=== PATIENT | female | born 1945 | race Caucasian/White ===

== ENCOUNTER 2020-02-06 18:16 | Emergency (ER) | payer MEDICARE, OTHER ==
[~2020-02-06] VITALS: Ht 170.2 cm; Wt 82.5 kg
[2020-02-06] MEDS ORDERED: LEVOTHYROXINE125 MCG PO (18:40)
[2020-02-06] MEDS ORDERED: SERTRALINE HCL50 MG PO (18:40)
[2020-02-06] MEDS ORDERED: LIOTHYRONINE SO5 MCG PO (18:41)
--- NOTE | 2020-02-07 13:22 | EKG ---
[facility] [address] [place], [place] [address] Signed Normal sinus rhythm Left axis deviation Inferior infarct , age undetermined Abnormal ECG No previous ECGs available Confirmed by SPEEDY NG DO ([id number]) on 02/07/2020 1:22:28 PM Electronically Signed By: SPEEDY NG DO 02/07/20 1322 PATIENT NAME: KAYKAY CANDELARIA Electrocardiogram DATE OF : 49 PHYSICIAN: SPEEDY NG DO REPORT #: [id number] REPORT IS CONFIDENTIAL AND NOT TO BE RELEASED WITHOUT AUTHORIZATION
== END 2020-02-07 02:47 | disposition home or self-care (01) ==
LOC: ED 18:16
DX: T42.6X1A Poisoning by other antiepileptic and sedative-hypnotic drugs, accidental (unintentional), initial encounter (principal); Z79.899 Other long term (current) drug therapy
CPT/HCPCS: 51701; 80053; 80176; 81001; 84436; 84443; 84479; 84480; 85025; 93005; 93010; 99284-25; G0480; J7030

== ENCOUNTER 2020-12-17 21:11 | Emergency (ER) | payer MEDICARE, OTHER ==
[~2020-12-17] VITALS: Ht 170.2 cm; Wt 81.3 kg
[~2020-12-17 21:11] MED LIST: LEVOTHYROXINE125 MCG PO; LIOTHYRONINE SO5 MCG PO; SERTRALINE HCL50 MG PO
--- OUTSIDE RECORDS SUMMARY | 2020-12-17 21:14 | XMS ---
PreManage Notification: KAYKAY CANDELARIA [facility] Sales Events No recent Security Events currently on file CRITERIA MET - [facility] CARE PROVIDERS There are no care providers on record at this time. Heather has no Care Guidelines for this patient. Zainab VISIT COUNT (12 MO.) 2 FLOYD [facility] TOTAL 2 NOTE: Visits indicate total known visits. ED/C VISIT TRACKING (12 MO.) 12/17/2020 21:12 [facility] [place] TYPE: Emergency COMPLAINT: - STROKE SYMPTOMS 02/06/2020 18:17 [facility] [place] TYPE: Emergency COMPLAINT: - SOMULENT DIAGNOSES: - Poisoning by other antiepileptic and sedative-hypnotic drugs, accidental (unintentional), initial encounter - Other intermediate teacher (current) drug therapy - Somnolence INPATIENT VISIT TRACKING (12 MO.) No inpatient visits to display in this time frame [email or web address]
[2020-12-17] MEDS ORDERED: LIPITOR10 MG PO (21:24)
[2020-12-17] MEDS ORDERED: LISINOPRIL10 MG PO (21:24)
[2020-12-17] MEDS ORDERED: ATORVASTATIN CA20 MG PO (21:24)
[2020-12-17] MEDS ORDERED: EUTHYROX112 MCG PO (21:24)
[2020-12-17] MEDS ORDERED: METFORMIN HCL500 M1 PO (21:24)
[2020-12-17] MEDS ORDERED: ESTRADIOL42.5 GM VG (21:25)
[2020-12-17] MEDS ORDERED: HYDROCHLOROTH12.5 MG PO (21:25)
--- NOTE | 2020-12-18 12:41 | EKG ---
[facility] [address] [facility] [place] [address] Signed Normal sinus rhythm Cannot rule out Anterior infarct , age undetermined Abnormal ECG When compared with ECG of 06-FEB-2020 18:49, Minimal criteria for Anterior infarct are now present Criteria for Inferior infarct are no longer present T wave inversion no longer evident in Inferior leads Confirmed by SPEEDY NG DO ([id number]) on 12/18/2020 12:41:00 PM Electronically Signed By: SPEEDY NG DO 12/18/20 1241 PATIENT NAME: KAYKAY CANDELARIA Electrocardiogram DATE OF : 49 PHYSICIAN: SPEEDY NG DO REPORT #: [id number] REPORT IS CONFIDENTIAL AND NOT TO BE RELEASED WITHOUT AUTHORIZATION
== END 2020-12-17 23:31 | disposition home or self-care (01) ==
LOC: ED 21:11
DX: R56.9 Unspecified convulsions (principal); Z79.899 Other long term (current) drug therapy; Z79.84 Long term (current) use of oral hypoglycemic drugs
CPT/HCPCS: 70450; 71045; 80053; 81001; 84484; 85025; 93005; 93010; 99285-25

== ENCOUNTER 2021-03-15 00:01 | Observation (INO) | payer MEDICARE, OTHER ==
[~2021-03-15] VITALS: Ht 170.2 cm; Wt 81.0 kg
[~2021-03-15 00:01] MED LIST changes: +ATORVASTATIN CA20 MG PO; +ESTRADIOL42.5 GM VG; +EUTHYROX112 MCG PO; +HYDROCHLOROTH12.5 MG PO; +LIPITOR10 MG PO; +LISINOPRIL10 MG PO; +METFORMIN HCL500 M1 PO
[2021-03-15] MEDS ORDERED: AMBIEN CR12.5 MG PO (01:56)
--- NOTE | 2021-03-15 03:31 | NUR ---
PT ADMITTED TO CCU ROOM 129 FOR NEW ONSET AFIB WITH RVR AND SEIZURE. PT HAD SEIZURE THIS EVENING, WAS BROUGHT IN BY EMS AND ALSO FOUND TO BE IN AFIB WITH RATE 120'S TO 140'S. ARRIVES VERY DROWSY BUT ARROUSES TO VOICE, AND ANSWERS QUESTIONS APPROPRIATLEY. SEIZURE PADS IN PLACE. PT DENIES PAIN OR DISCOMFORT, STATES SHE WILL CALL IF SHE NEEDS TO GET UP, CALL LIGHT IN HAND. PT ARRIVES ON 5L/NC WITH SPO2 98%, TITRATED DOWN TO 3L/NC. CURRENT HR 120'S, WILL START CARDIZEM DRIP. LUNGS SOUNDS CLEAR, PT DENIES SOB.
--- NOTE | 2021-03-15 05:19 | NUR ---
PT CONT TO SLEEP, HR 70'S, CARDIZEM DRIP RUNNING AT 5MG/HR.
--- NOTE | 2021-03-15 06:00 | NUR ---
HR HAS REMAINED IN THE 70'S, CARDIZEM DRIP TURNED TO 2MG/HR.
--- NOTE | 2021-03-15 06:55 | NUR ---
CARDIZEM DRIP TURNED OFF, HR 70'S.
--- NOTE | 2021-03-15 08:10 | NUR ---
PATIENT ASLEEP BUT EASILY AROUSEABLE TO VOICE UPON INITIAL ASSESSMENT. PATIENT IS ORIENTED TO SELF, SITUATION, TIME AND EVENT. PATIENT KNOWS SHE HAD A SEIZURE AND STATES THE IRREGULAR HR IS NOT NEW FOR HER. PATIENT STATES HER LAST SEIZURE WAS DECEMBER OF THIS YEAR AND SHE FOLLOWED UP WITH JULIANN. PT TAKEN OFF OXYGEN AND SP02 IS 91%. LUNG SOUNDS ARE CLEAR. PT GIVEN WATER AND NO TROUBLE SWALLOWING. AM MEDS TO BE GIVEN.
--- NOTE | 2021-03-15 09:54 | NUR ---
IN ROOM TO GIVE PT MEDS VIA EMAR. PT UP TO BATHROOM ONE PERSON ASSIST. PT BACK TO BED. PTS IN ROOM. PT DENIES DIZZYNESS UPON STANDING. HR 110-120S WITH AMBULATION, A FIB.
[2021-03-15] MEDS ORDERED: EUTHYROX100 MCG PO (10:16)
--- NOTE | 2021-03-15 11:54 | NUR ---
REPORT RECEIVED FROM CANDACE HYATT, AWAITING PTS ARRIVAL TO MED/SURG
--- NOTE | 2021-03-15 12:02 | NUR ---
REPORT GIVEN TO CANDACE RILEY WHO WILL BE RESUMING CARE FOR PATIENT. PATIENT TO BE PLACED ON TELE. HR IN THE 60-70s NOW AFTER RECENT PO MEDS WERE GIVEN. PT WILL TRANSFER OVER IN THE BED.
--- NOTE | 2021-03-15 12:24 | NUR ---
PT ARRIVED TO MED/SURG. PT ALERT AND OREINTED TO ALL. PT DENIES PAIN AND NAUSEA. BLOOD PRESSURE NOTED TO BE SLIGHTLY LOW. PT DENIES DIZZINESS OR FEELINGS OF LIGHTHEADEDNESS. PT SITS ON EDGE OF BED, BLOOD PRESSURE REEVALUATED BEFORE STANDING AND FOUND TO BED 91/58 WITH A MAP OF 66. PT CONTINUES TO DENY ANY DIZZINESS OR LIGHTHEADEDNESS. LUNG SOUNDS CLEAR. NO COUGH NOTED. PT ON ROOM AIR AT THIS TIME WITH 91% OXGYENATION. HEART TONES IRREGULAR, AFIB ON MONITOR WITH HEART RATE 60-80'S. PT DEMONSTRATES USE OF I.S. REACHING 750 X3. PT DENIES ADDITIONAL REQUESTS OR COMPLAINTS. PT REMAINS UP TO CHAIR. CALL LIGHT WIHTIN REACH.
--- NOTE | 2021-03-15 14:30 | NUR ---
CCU RN CALLED AND STATES PTS TELE HAS SHOWN HEART RATE IN THT 60'S WITH A FEW PAUSES AND ONE BRIEF PERIOD IN THE 30-40'S. BLOOD PRESSURE ALSO NOTED TO BE CONSISTANTLY ON THE LOWER SIDE. PT CONTINUES TO DENY DIZZINESS AND/OR LIGHT HEADEDNESS OR FEELINGS OF PALPITATIONS. DR. NG UPDATED AND CONSULTED REGARDING AFTERNOON DILTIAZEM DOSE. DR. NG STATES OK TO GIVE DOES. PT REMAINS UP TO CHAIR. DENIES PAIN AND NAUSEA. NO ADDITIONAL REQUESTS OR COMPLAINTS. CALL LIGHT WITHIN REACH. PTS AT BEDSIDE.
--- NOTE | 2021-03-15 16:00 | NUR ---
THIS RN TO ROOM TO CHECK ON PT. PT RESTING IN CHAIR WITH EYES CLOSED. RESPIRATIONS EVEN AND UNALBORED. PT ALLOWED TO REST. CALL LIGHT WITHIN REACH.
--- NOTE | 2021-03-15 16:28 | NUR ---
PT TRANSFERED FROM CCU THIS SHIFT, HERE FOR AFIB RVR AND POSSIBLE SEIZURE. PT UP WITH STAND BY ASSIST TO CHAIR FOR LUNCH AND MOST OF SHIFT. PT TOELRATING 60G CARB DIET WITH GOOD APPITITE THIS SHIFT. BLOOD SUGAR CHECKS WITH MEALS, NO SLIDING SCALE INSULIN NEEDED SO FAR THIS SHIFT. PT REMAINS ON TELEMETRY CARDIAC MONITORING WITH HEART RATE 60-80'S. BRIEF EPISODES OF SLOWER HEART RATE AND PAUSES THIS SHIFT, MD AWARE. PT WAS REQURING OXGYEN WITH SLEEP LAST NIGHT, ON ROOM AIR SO FAR THIS SHIFT. NO SEZURE ACTIVITY NOTED SO FAR. I.S. PROVIDED, USE ENSURED. PT VOIDING QUANTITY SUFFICIENT. PT USES CALL LIGHT AND MAKES NEEDS KNOWN.
--- NOTE | 2021-03-15 16:59 | NUR ---
Spoke with Deisy, states she lives in a 1 story home with 1 step, with her spouse. 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 Does not feel Afib is new, as she has felt before. States she has not been active this summer due to the heat. She normally is active in yard. Also states she does not sleep well and is tired all the time. PCP is Katlyn Su in [place]. Pt plans on dc to home when medically stable and spouse will assist.
--- NOTE | 2021-03-15 17:08 | NUR ---
THIS RN TO ROOM TO CHECK ON PT. PT REMAINS UP TO CHAIR. YUE, NEW BEVERAGE DISTILLER, ASSISTED WITH TAKING AND EVALUATING BLOOD SUGAR. NO INSULIN NEEDED. PT DENIES PAIN AND NAUSEA. REPORTS SHE IS FEELING GOOD AND HOPING TO GO HOME SOON. PT DENIES DIZZINESS OR LIGHTHEADEDNESS. DINNER DELIVERED. PT DENIES ADDITIONAL REQUESTS OR COMPLAINTS. CALL LIGHT WITHIN REACH. PHARMACIST TO BEDSIDE TO REVIEW MEDICATIONS WITH PT.
--- NOTE | 2021-03-15 17:28 | NUR ---
THIS RN TO ROOM WITH DR. LEAL FOR WOUND EVALUATION. GAUZE REMOVED. DR. LEAL STATES WOUND IS WNL. VERBAL ORDER FOR ABDOMINAL BINDER GIVEN. ORDER ENTERED. STATES NOW OK TO REMOVE SUBCLAVAIN LINE. GAUZE REAPPLIED TO CAUDIAL MIDLINE INCISION. 2X2 GAUZE OVER FRIDA SITE WHICH IS NO LONGER LEAKING VERY MUCH FLUID. PT FINISHING DINNER. NO ADDITIONAL REQUESTS OR COMPLAINTS. CALL LIGHT WITHIN REACH. PT DENIES PAIN AND NAUSEA.
[2021-03-15] MEDS ORDERED: IRON325 M1 PO (17:39)
[2021-03-15] MEDS ORDERED: PRILOSEC OTC20 MG PO (17:39)
[2021-03-15] MEDS ORDERED: VITAMIN C250 M1 PO (17:39)
[2021-03-15] MEDS ORDERED: MULTI-VITAMIN1 EAC1 PO (17:40)
[2021-03-15] MEDS ORDERED: COLON HERBAL C1 EACH PO (17:40)
[2021-03-15] MEDS ORDERED: METHOTREXATE2.5 MG PO (17:41)
[2021-03-15] MEDS ORDERED: FOLIC ACID1 MG PO (17:42)
--- NOTE | 2021-03-15 17:42 | NUR ---
MED REC COMPLETE
--- NOTE | 2021-03-15 18:15 | NUR ---
THIS RN TO ROOM TO CHECK ON PT. PT RESTING IN CHAIR WITH EYES CLOSED. RESPIRATIONS EVEN AND UNALBORED. PT ALLOWED TO REST. HEART RATE 60-70'S AT THIS TIME WITH ONGOING AFIB RYTHEM. CALL LIGHT WITHIN REACH.
--- NOTE | 2021-03-15 19:30 | NUR ---
REPORT GIVEN TO CANDACE RAMOS, WHO IS ASSUMING CARE OF PT.
--- NOTE | 2021-03-15 20:00 | NUR ---
RESTING, EYES CLOSED, ON ROOM AIR, NO DITRESS, TELE IN PLACE, SEIZURE PADS ON RAILS. BED ALARM ON
--- NOTE | 2021-03-15 20:30 | NUR ---
IN TO SBA PT TO THE BATHROOM, PT UP TO VOID, x1 MISS, PT BRUSHING TEETH, THEN TO BED AND READING A BOOK, DECLINED WATER REFILL AT THIS TIME, WILL BRING MORE LATER FOR PT, NO FURTHER NEEDS THIS TIMW
--- NOTE | 2021-03-15 22:27 | NUR ---
Awakes easily, on room air, denies need for O2 at HS. lungs clear, alert and oriented, denies sob with exertion, CP or pre seizure aura. helps withturning and repositioning. tele#[address], irregular rate and rhythm s fib. tolerating fluids well, non/v,
--- NOTE | 2021-03-16 01:00 | NUR ---
RESTING, ON ROOM AIR, SEIZURE, FALL AND ASPIRATION PRECAUTIONS IN PLACE. BED ALARM ON, TOLERATING FLUDIS WELL, NO EMESIS, CALL LIGHT AND FLUIDS AT BEDSIDE, TELE#9 IN PLCE, AFIB RHYTHM
--- NOTE | 2021-03-16 03:29 | NUR ---
awakes easily, no c/o CP or sob, no seizure aura, turns and repositions self in bed, sl patent, took meds w/o ptoblems, tele#[address] afib rhythm
--- NOTE | 2021-03-16 04:53 | NUR ---
Pt slept, awakes easily, no c/o CP or SOB or pre seizure aura, tele#[address] afib. seizure precautions pads in place, fall and aspiration precautions. tolerating liquids well, no emesis, no c/o any discomofrt, med ed given on cardizem and anticoagulation, unknown degree of information retained as she just closed her eyes, IS at bedside. tolerating liquids and diet well.
--- NOTE | 2021-03-16 07:35 | NUR ---
Shift report received from CANDACE Avila. Pt resting safely w/ call light in reach. pt denies any needs at this time.
--- NOTE | 2021-03-16 08:17 | NUR ---
PT WAS IN BED. PT REFUSED TO GET UP TO THE RECLINER. THIS SECURITIES VAULT SUPERVISOR GAVE PT A WARM WASHCLOTH FOR THEIR FACE. WHITEBOARD WAS UPDATED. CALL LIGHT IS WITHIN REACH. NO FURTHER NEEDS AT THIS TIME.
--- NOTE | 2021-03-16 08:51 | NUR ---
PT SITTIGN UP IN BED EATING BREAKFAST, PT A+O x3 W/ SEIZURE PADS IN PLACE, PT DENIES CP OR SOB. MORNING ASSESMENT COMPLETE AND SCHEDULED MEDS GIVEN PER PROVIDER ORDERS. PT DENIES ANY NEEDS AT THIS TIME, CALL LIGHT IN REACH. VSS ON RA
--- NOTE | 2021-03-16 10:20 | NUR ---
Pt sitting up in bed safely w/ call light in reach, at bedside. Pt given additional dose of Metoprolol per provider order, BP w/ in range, HR tachy ranging 110's-130's, pt denies CP or SOB, tele showing Afib rythtm.
--- NOTE | 2021-03-16 12:07 | NUR ---
Pt sitting up in bed eating lunch, CBG in range, no sliding scale insulin needed at this time. Call light w/ in reach pt denies any CP, SOB, or needs at this time.
[2021-03-16] MEDS ORDERED: METOPROLOL TART25 MG PO (14:13)
[2021-03-16] MEDS ORDERED: ASPIRIN325 MG PO (14:14)
[2021-03-16] MEDS ORDERED: LEVETIRACETAM500 MG PO (14:14)
[2021-03-16] MEDS ORDERED: DILTIAZEM 24HR180 M1 PO (14:14)
--- NOTE | 2021-03-16 14:37 | NUR ---
PT SITTING UP IN BED WATCHING TV, CALL LIGHT IN REACH AND AT BEDSIDE. ADDITIONAL DOSE OF CARDIZEM GIVEN PER PROVIDER ORDER, VSS ON RA. PHARMACIST AUTUMN IN ROOM DISCUSSING DISCHARGE MEDICATIONS W/ PT.
--- NOTE | 2021-03-16 14:53 | EKG ---
[facility] [address] [facility] [place], [place] [address] Signed Atrial fibrillation with rapid ventricular response Nonspecific ST and T wave abnormality Abnormal ECG When compared with ECG of 17-DEC-2020 21:16, Atrial fibrillation has replaced Sinus rhythm Vent. rate has increased BY 61 BPM Confirmed by SPEEDY NG DO ([id number]) on 03/16/2021 2:53:18 PM Electronically Signed By: SPEEDY NG DO 03/16/21 1453 PATIENT NAME: KAYKAY CANDELARIA Electrocardiogram DATE OF : 49 PHYSICIAN: SPEEDY NG DO REPORT #: [id number] REPORT IS CONFIDENTIAL AND NOT TO BE RELEASED WITHOUT AUTHORIZATION
== END 2021-03-16 15:03 | disposition home or self-care (01) ==
LOC: ED 00:01 → CCU 00:02 → MS 00:02 → CCU 00:02 → MS 12:30
PROVIDERS: ADMIT Student in an Organized Health Care Education/Training Program; ATTEND Student in an Organized Health Care Education/Training Program
DX: I48.91 Unspecified atrial fibrillation (principal); G40.409 Other generalized epilepsy and epileptic syndromes, not intractable, without status epilepticus; E11.9 Type 2 diabetes mellitus without complications; E03.9 Hypothyroidism, unspecified; I10 Essential (primary) hypertension; E78.5 Hyperlipidemia, unspecified; Z20.822 Contact with and (suspected) exposure to COVID-19; Z96.653 Presence of artificial knee joint, bilateral; Z96.649 Presence of unspecified artificial hip joint; Z79.84 Long term (current) use of oral hypoglycemic drugs
CPT/HCPCS: 70450; 71045; 80053; 81001; 83735; 84443; 84484; 85025; 93005; 93010; 94760; 96374; 96376; 99285-25; C9803; G0480; J3475; J7030; U0003

== ENCOUNTER 2021-07-17 20:57 | Emergency (ER) | payer MEDICARE, OTHER ==
[~2021-07-17] VITALS: Ht 165.1 cm; Wt 78.5 kg
[~2021-07-17 20:57] MED LIST changes: +AMBIEN CR12.5 MG PO; +ASPIRIN325 MG PO; +COLON HERBAL C1 EACH PO; +DILTIAZEM 24HR180 M1 PO; +EUTHYROX100 MCG PO; +FOLIC ACID1 MG PO; +IRON325 M1 PO; +LEVETIRACETAM500 MG PO; +METHOTREXATE2.5 MG PO; +METOPROLOL TART25 MG PO; +MULTI-VITAMIN1 EAC1 PO; +PRILOSEC OTC20 MG PO; +VITAMIN C250 M1 PO
[2021-07-17] MEDS ORDERED: METHOTREXATE2.5 MG PO (21:24)
[2021-07-17] MEDS ORDERED: VENLAFAXINE HCL75 M2 PO (21:24)
[2021-07-17] MEDS ORDERED: DILT-XR240 MG PO (21:25)
--- OUTSIDE RECORDS SUMMARY | 2021-07-17 22:04 | XMS ---
PreManage Notification: KAYKAY CANDELARIA [facility] Events No recent Security Events currently on file CRITERIA MET - [employer] CARE PROVIDERS KEVON MAC Nurse Practitioner: 12/18/2020-Current PHONE: Unknown Heather has no Care Guidelines for this patient. EOzzy VISIT COUNT (12 MO.) 3 FLOYD Brunson TOTAL 3 NOTE: Visits indicate total known visits. ED/UCC VISIT TRACKING (12 MO.) 07/17/2021 20:58 [facility] [place] TYPE: Emergency COMPLAINT: - SEIZURE 03/15/2021 00:01 [facility] [place] TYPE: Emergency COMPLAINT: - POSSIBLE SIEZURE 12/17/2020 21:12 [facility] [place] TYPE: Emergency COMPLAINT: - STROKE SYMPTOMS DIAGNOSES: - Unspecified convulsions - Other petroleum terminal plant operator (current) drug therapy - watermelon inspector (current) use of oral hypoglycemic drugs INPATIENT VISIT TRACKING (12 MO.) 03/15/2021 00:02 [facility] [place] TYPE: Observation COMPLAINT: - A+FIB RUR DIAGNOSES: - Type 2 diabetes mellitus without complications - Hyperlipidemia, unspecified - Other generalized epilepsy and epileptic syndromes, not intractable, without status epilepticus - FCI (current) use of oral hypoglycemic drugs - Hypothyroidism, unspecified - Unspecified atrial fibrillation - Presence of artificial knee joint, bilateral - Presence of unspecified artificial hip joint - Essential (primary) hypertension [email or web address]
== END 2021-07-17 23:18 | disposition home or self-care (01) ==
LOC: ED 20:57
DX: R56.9 Unspecified convulsions (principal); I10 Essential (primary) hypertension; E03.9 Hypothyroidism, unspecified; M06.9 Rheumatoid arthritis, unspecified; Z79.899 Other long term (current) drug therapy
CPT/HCPCS: 80053; 82140; 85025; 96374; 99285-25; J2060

== ENCOUNTER 2024-08-24 05:28 | Inpatient (IN) | payer MEDICARE, OTHER ==
[~2024-08-24] VITALS: Ht 167.6 cm; Wt 89.0 kg
[~2024-08-24 05:28] MED LIST changes: +DILT-XR240 MG PO; +VENLAFAXINE HCL75 M2 PO
[2024-08-24] MEDS ORDERED: ZOLPIDEM TART12.5 MG PO (05:38)
[2024-08-24] MEDS ORDERED: LEVOTHYROXINE125 MCG PO (05:38)
[2024-08-24] MEDS ORDERED: methylPREDNISolone SOD SUCC 125 MG/2 ML VIAL IV ONE (05:45)
[2024-08-24] MEDS ORDERED: ALBUTEROL/IPRATROPIUM 3 ML NEB INH ONE (05:45)
[2024-08-24 05:46] LABS: BASOPHILS 0.5 % (0-2); EOSINOPHILS 1.6 % (0-6); HEMATOCRIT 40.1 % (35.0-50.0); HEMOGLOBIN 13.1 g/dL (12.0-18.0); LYMPHOCYTES 16.7 % (24-44); MCH 29.9 (27-36); MCHC 32.8 g/dl (30-36); MCV 91.1 fl (81-99); MONOCYTES 12.3 % (0-12); NEUTROPHILS 68.9 % (39-80); PLATELET COUNT 216 K/uL (140-440); RDW 19.7 (10.5-15.0)
[2024-08-24 06:01] LABS: ALBUMIN 3.5 g/dL (3.4-5.0); ANION GAP 14.7 (7-21); BILIRUBIN, TOTAL 0.9 mg/dL (0.2-1.0); BUN/CREATININE RATIO 22.53 (6.0-28.6); CALCIUM 8.5 mg/dL (8.5-10.1); CREATININE, SERUM 0.71 mg/dL (0.55-1.02); POTASSIUM 3.7 mmol/L (3.5-5.1)
[2024-08-24 06:33] LABS: INFLUENZA B NAA NEGATIVE (NEGATIVE); RESPIRATORY SYNCYTIAL VIR NAA NEGATIVE (NEGATIVE)
[2024-08-24] MEDS ORDERED: CEFTRIAXONE/SODIUM CHLORIDE 2 GM/100 ML PIGGYBACK IV ONE (07:15)
[2024-08-24] MEDS ORDERED: AZITHROMYCIN/DEXTROSE 500 MG/250 ML PIGGYBACK IV ONE (07:15)
[2024-08-24] MEDS ORDERED: ALBUTEROL SULFATE 0.083% 3 ML VIAL INH PRN (07:30)
[2024-08-24] MEDS ORDERED: ondansetron HCL 4 MG/2 ML VIAL IV PRN ×2 (07:30→09:15)
[2024-08-24] MEDS ORDERED: ACETAMINOPHEN 325 MG TAB PO PRN ×2 (07:30→09:15)
[2024-08-24] MEDS ORDERED: ALBUTEROL/IPRATROPIUM 3 ML NEB INH SCH ×2 (08:00→14:00)
[2024-08-24 08:07] VITALS: BP 146/87
--- NOTE | 2024-08-24 08:57 | NUR ---
PT TO FLOOR WITH CANDACE MALIN AND THIS RN AND . PT ABLE TO TRANSFER SELF FROM STRETCHER TO BED ON OWN. DOES NOT USE ASSIST DEVICE AT HOME. 2LNC NOT CHRONIC HOWEVER DOES HAVE A CONDENSOR AT HOME. LUNGS SOUNDS COARSE AND WHEEZY THROUGHOUT.
[2024-08-24] MEDS ORDERED: LACTATED RINGER'S 1,000 ML IV SCH (09:00)
[2024-08-24] MEDS ORDERED: FOLIC ACID 1 MG TAB PO SCH (09:08)
[2024-08-24] MEDS ORDERED: LEVOTHYROXINE SODIUM 125 MCG TAB PO SCH (09:09)
[2024-08-24] MEDS ORDERED: dilTIAZem HCL 120 MG CAPCR PO SCH (09:11)
[2024-08-24] MEDS ORDERED: AZITHROMYCIN 500 MG in DEXTROSE 5% 250 ML IV SCH (09:15)
[2024-08-24] MEDS ORDERED: ZOLPIDEM TARTRATE 5 MG TAB PO PRN ×2 (09:15→11:45)
--- NOTE | 2024-08-24 09:30 | NUR ---
Spoke with Deisy. Spouse is in the room. They live in a home with 1 step. Pt states she is active and does not use any DME. She works at a school. Pt c/o of not feeling well for several days and remains very tired today. Pt has 02 on and states spouse has 02 concentrator at home with a portable concentrator from [facility]. They would like to share a concentrator if possible. Updated we would need to speak with [facility]. Will fu when closer to dc if pt requires 02. They deny any financial issues.Pt plans on return to home on dc with spouse
--- NOTE | 2024-08-24 10:30 | NUR ---
AB COMPLETE. DISCONNECTED. PT DENIES NEEDS ATT.
[2024-08-24] MEDS ORDERED: BUPROPION XL150 MG PO (10:51)
--- NOTE | 2024-08-24 10:57 | NUR ---
PT NOT AVAILABLE FOR VISIT. PROVIDED PRAYER.
--- NOTE | 2024-08-24 11:15 | NUR ---
PT BOLUS COMPLETE. DISCONNECTED FROM TUBING AND SL. PT TOLERATED WELL. CALL LIGHT IN REACH.
--- NOTE | 2024-08-24 11:34 | NUR ---
MED REC COMPLETE
[2024-08-24] MEDS ORDERED: PRILOSEC OTC20 MG PO (11:36)
[2024-08-24] MEDS ORDERED: MELOXICAM15 MG PO (11:36)
[2024-08-24] MEDS ORDERED: PHARMACY RENAL DOSE ADJUSTMENT 1 DOSE MISC PO SCH (12:00)
[2024-08-24] MEDS ORDERED: TAMSULOSIN HCL 0.4 MG CAP PO SCH (13:00)
--- NOTE | 2024-08-24 13:01 | NUR ---
PT AND OT SPOKE WITH THIS RN REGARDING PT TAKING 5MINUTES TO EMPTY HER BLADDER. PT STATES THAT IS NORMAL FOR HER. SPOKE WITH AND HE ORDERED FLOMAX WITH FOLLOW UP WITH NICOLÁS.
[2024-08-24 13:41] VITALS: BP 145/78
--- NOTE | 2024-08-24 13:43 | NUR ---
PATIENT IN BED AT THIS TIME. SATELLITE DISH INSTALLER CHARTED VITALS AND I&O'S. CALL LIGHT WITHIN REACH, NO FURTHER NEEDS AT THIS TIME.
--- NOTE | 2024-08-24 14:14 | NUR ---
PT SITTING UP IN CHAIR NAPPING. EXPLAINED FLOMAX AND ADMINISTERED. PT STATES SHE HOPES THAT HELPS. DENIES OTHER CONCERNS. WAS NOTED TO BE 88% ON 2LNC WHILE SLEEPING, TURNED UP TO 3L 91%
[2024-08-24] MEDS ORDERED: PANTOPRAZOLE SODIUM 40 MG TABEC PO SCH (14:39)
--- NOTE | 2024-08-24 16:18 | NUR ---
ADMINISTERED SCHEDULED MED. STAFF IN TO LISTEN TO LUNG SOUNDS SHE HAS A UNIQUE LUNG BASE SOUND.
[2024-08-24 17:15] VITALS: BP 137/77
--- NOTE | 2024-08-24 17:17 | NUR ---
PATIENT IN CHAIR AT THIS TIME. HOSPITALIST PROGRAM DIRECTOR CHARTED VITALS AND I&O'S. CALL LIGHT WITHIN REACH, NO FURTHER NEEDS AT THIS TIME.
--- NOTE | 2024-08-24 17:44 | EKG ---
[facility] [address] [facility] [place] [address] Signed Sinus rhythm with premature atrial complexes Septal infarct (cited on or before 31-OCT-2023) Abnormal ECG When compared with ECG of 31-OCT-2023 07:45, premature atrial complexes are now present Nonspecific T wave abnormality now evident in Inferior leads Confirmed by Chandrakant Mora MD ([id number]) on 08/24/2024 5:44:21 PM Electronically Signed By: CHANDRAKANT MORA MD 08/24/24 1744 PATIENT NAME: KAYKAY CANDELARIA Electrocardiogram DATE OF : 49 PHYSICIAN: CHANDRAKANT MORA MD REPORT #: [id number] REPORT IS CONFIDENTIAL AND NOT TO BE RELEASED WITHOUT AUTHORIZATION
[2024-08-24 18:08] VITALS: BP 137/77
--- NOTE | 2024-08-24 19:00 | NUR ---
SHIFT REPORT RECEIVED FROM DAYSIAFT CANDACE HEARN AT BEDSIDE, pt AWAKE AND RESTING IN CHAIR-WATCHING TV. IV SITE WNL, SALINE LOCKED. pt ON 3LNC, CPOX AT BEDSIDE, SPO2 92% AND HR 72. NO NEEDS OR CONCERNS, CALL LIGHT IN REACH.
[2024-08-24 19:44] VITALS: BP 144/64
[2024-08-24 19:47] VITALS: BP 144/64
--- NOTE | 2024-08-24 20:00 | NUR ---
ASSESSMENT COMPLETE, NO SCHEDULED MEDS. pt A/OX4, DENIES PAIN AND NAUSEA. DENIES SOB, REMAINS ON 3LNC, RR EVEN AND UNLABORED. BT ACTIVE. IV SITE WNL, FLUSHES EASILY AND REMAINS SALINE LOCKED. IS AT BEDSIDE, BUT DECLINES DEMONSTRATION OF USE AT THIS TIME, STATING, "I JUST DID IT". pt REPORTS MAKING IT TO THE [id number] MARKER. CALL LIGHT IN REACH.
--- NOTE | 2024-08-24 22:30 | NUR ---
PATIENT'S CALL LIGHT ANSWERED. THIS PRODUCT DESIGN SPECIALIST INTO THE ROOM. PATIENT IS UP IN THE CHAIR. PATIENT IS UPSET STATING WERE YOU THE ONE ANSWERED THE CALL? THIS PRODUCT DESIGN SPECIALIST ANSWERED I DO THAT'S WHY I AM HERE. PATIENT STATED I CALLED AN HOUR AGO. SOMEONE ANSWERED BUT I DONT THINK IT'S YOU. THIS PRODUCT DESIGN SPECIALIST TOLD PATIENT MAKE SURE TO CALL AGAIN WHEN NO ONE CAME AFTER 2 OR MORE MINUTES. PATIENT'S PERSONAL PANTS AND UNDERWEAR CHANGED TO HOSPITAL GOWN AND PULLUPS. PATIENT STATED WHEN SHE COUGHS SHE DRIBBLES. PATIENT URINATED DARK URINE UNMEASURED. PATIENT IS BACK IN BED. CPOX AND O2 ARE ON. NO FURTHER NEEDS AT THIS TIME. PRIMARY RN NOTIFIED.
--- NOTE | 2024-08-24 23:01 | NUR ---
PRN SLEEP AID ADMINISTERED PER pt REQUEST-SEE EMAR. pt REPORTS FEELING CONSTIPATED, NIO FOR BOWEL CARE STARTED SEE EMAR-UPDATED COMPUTER SECURITY MANAGER AND pt, pt AGRREABLE TO POC. CALL LIGHT IN REACH, NO ADDITIONAL NEEDS OR CONCERNS VERBALIZED.
--- NOTE | 2024-08-24 23:55 | NUR ---
rounded on pt, pt resting quietly in bed, remains on 3 lnc, rr even and unlabored. pt appears relaxed and comfortable, call light in reach.
[2024-08-25] VITALS (8 sets, daily range): BP systolic 111–146; BP diastolic 63–82
--- NOTE | 2024-08-25 03:39 | NUR ---
rounded on pt, pt resting in bed, on 3lnc. cpox at bedside, call light in reach. no distress noted, rr even and unlabored.
--- NOTE | 2024-08-25 04:55 | NUR ---
rounded on pt, pt resting quietly on right side facing window. remains on 3lnc, rr even and unlabored. spo2 91-92%, hr wnl. pt appears comfortable and relaxed, call light in reach.
[2024-08-25 05:29] LABS: BASOPHILS 0.9 % (0-2); HEMATOCRIT 37.3 % (35.0-50.0); HEMOGLOBIN 12.5 g/dL (12.0-18.0); LYMPHOCYTES 21.1 % (24-44); MCH 30.5 (27-36); MCHC 33.4 g/dl (30-36); MCV 91.3 fl (81-99); MONOCYTES 18.4 % (0-12); NEUTROPHILS 58.6 % (39-80); PLATELET COUNT 163 K/uL (140-440); RBC 4.09 M/ul (4.3-5.7); RDW 19.8 (10.5-15.0)
[2024-08-25 05:42] LABS: ANION GAP 11.6 (7-21); BUN/CREATININE RATIO 22.72 (6.0-28.6); CALCIUM 8.7 mg/dL (8.5-10.1); CREATININE, SERUM 0.66 mg/dL (0.55-1.02); MAGNESIUM 1.9 mg/dL (1.8-2.4); POTASSIUM 3.6 mmol/L (3.5-5.1)
--- NOTE | 2024-08-25 06:13 | NUR ---
rounded on pt, pt resting on back. rr even and unlabored, 3lnc remains in place, cpox at bedside. spo2 91% AND HR WNL. call light in reach.
--- NOTE | 2024-08-25 06:43 | NUR ---
THIS LOG CUTTER ENCOURAGED TO USE THE BATHROOM TWICE. PATIENT DECLINED. PATIENT STATED NO, NOT YET. NOT FEEL LIKE GOING YET. PRIMARY RN NOTIFIED.
--- NOTE | 2024-08-25 07:15 | NUR ---
REPORT RECEIVED RFOM PHARMACOLOGY ASSOCIATE RN. PATIENT RESTING IN BED WITH EYES CLOSED. RESPIRATIONS EVEN AND UNLABORED. CALL LIGHT WITHIN REACH.
--- NOTE | 2024-08-25 08:11 | NUR ---
PATIENT IN BED AT THIS TIME. EXPORT COORDINATOR WENT INTO PATIENTS ROOM FOR HOURLY ROUNDS. CALL LIGHT WITHIN REACH, NO FURTHER NEEDS AT THIS TIME.
[2024-08-25] MEDS ORDERED: CEFTRIAXONE SODIUM 1 GM VIAL IV ONE (08:51)
[2024-08-25] MEDS ORDERED: AZITHROMYCIN 500 MG VIAL ONE (08:51)
[2024-08-25] MEDS ORDERED: CEFTRIAXONE/SODIUM CHLORIDE 1 GM/100 ML PIGGYBACK IV SCH (09:00)
[2024-08-25] MEDS ORDERED: AZITHROMYCIN 500 MG in DEXTROSE 5% 250 ML IV SCH (09:00)
[2024-08-25] MEDS ORDERED: buPROPion HCL XL 150 MG TAB.XL.24H PO SCH (09:00)
[2024-08-25] MEDS ORDERED: ENOXAPARIN SODIUM 40 MG/0.4 ML SYR SUB-Q SCH (09:00)
[2024-08-25] MEDS ORDERED: CEFTRIAXONE SODIUM 1 GM in SODIUM CHLORIDE 0.9% 100 ML IV SCH (09:00)
[2024-08-25] MEDS ORDERED: POLYETHYLENE GLYCOL 3350 1 PACKET PO SCH (09:00)
--- NOTE | 2024-08-25 09:44 | NUR ---
PATIENT IS IN BED AT THSI TIME, AIRCRAFT LOADMASTER SUPERINTENDENT CHARTED I&O'S. VITALS WERE ALREADY CHARTED, PATIENT HAS NOT VOIDED THIS MORNING. CALL LIGHT WITH IN REACH, NOTHING ELSE NEEDED AT THIS TIME.
--- NOTE | 2024-08-25 10:30 | NUR ---
ROUND ON PATIENT. RESTING IN BED. DENIES ANY NEEDS AT THIS TIME. IV SITE WNL. CPOX READING WNL. CALL LIGHT WITHIN REACH.
--- NOTE | 2024-08-25 10:30 | NUR ---
Spoke with Deisy. She denies needs. Cont. to feel fatigued. Cont. on .
--- NOTE | 2024-08-25 11:34 | NUR ---
PT RESTING IN BED, AT BEDSIDE. IV ABX COMPLETED, SALINE LOCKED PER PRIMARY RN. PT DENIES ANY FURTHER NEEDS AT THIS TIME, CALL LIGHT WITHIN REACH. ALL PT CARE NEEDS MET.
--- NOTE | 2024-08-25 12:21 | NUR ---
PATIENT RESTING IN BED. EATING LUNCH AT THIS TIME. DENIES ANY SOB. INSTRUCTED ON USING THE IS. SAO2 AT 90% ON 2 L NC. NO FURTHER NEEDS CALL LIGHT WITHIN REACH.
--- NOTE | 2024-08-25 13:20 | NUR ---
PATIENT RESTING IN BED. NEW COPX STICKER APPLIED TO FINGER. READINGS WNL. DENIES ANY NEEDS AT THIS TIME. CALL LIGHT WITHIN REACH.
--- NOTE | 2024-08-25 14:38 | NUR ---
VISITED DURING SPIRITUAL CARE ROUNDS. PT IN OVERALL GOOD SPIRITS, NO IMMEDIATE NEEDS. METAL COATER PROVIDED SUPPORTIVE PRESENCE, HOSPITALITY, PRAYER, FACILITATED INTERACTION WITH THERAPY ANIMAL. PT EXPRESSED GRATITUDE.
--- NOTE | 2024-08-25 14:44 | NUR ---
PATIENT SITTING UP IN CHAIR AT THIS TIME. VITALS AND I&O'S DONE AND CHARTED. CALL LIGHT IN REACH. NO FURTHER NEEDS AT THIS TIME.
--- NOTE | 2024-08-25 15:42 | NUR ---
PATIENT RESTING IN RECLINER. C/O NASAL CONGESTION. MD NOTIFIED. NEW ORDERS RECEIVED SEE MAR. PATIENT C/O FEELING LIKE HER NOSE IS "DRY". HUMIDIFICATION ADDED TO OXYGEN. LUNG SOUNDS REMAIN CORASE WITH EXPIRATORY WHEEZES. CPOX READINGS WNL ON 2L O2 VIA NC. NO FURTHER NEEDS CALL LIGHT WITHIN REACH.
[2024-08-25] MEDS ORDERED: PSEUDOEPHEDRINE HCL 30 MG TAB PO ONE (16:00)
--- NOTE | 2024-08-25 16:10 | NUR ---
MEDICATION ADMINSTERED SEE MAR. PATIENT RESTING IN RECLINER WITH FAMILY FIREND VISITING AT THIS TIME. DENIES ANY FURTHER NEEDS CALL LIGHT WITHIN REACH.
--- NOTE | 2024-08-25 17:34 | NUR ---
PATIENT RESTING IN RECLINER. REPORTS HER NASAL CONGESTION HAS IMPROVED. EATING DINNER. DENIES ANY NEEDS AT THIS TIME. INSTRUCTED TO USE IS Q HOUR. CPOX IN PLACE READINGS WNL. NO FURTHER NEEDS CALL LIGHT WITHIN REACH.
--- NOTE | 2024-08-25 18:02 | NUR ---
PATIENT SITTING UP IN CHAIR AT THIS TIME. VITALS AND I&O'S DONE AND CHARTED. FRESH WATER GIVEN. CALL LIGHT IN REACH. NO FURTHER NEEDS AT THIS TIME.
--- NOTE | 2024-08-25 19:33 | NUR ---
REPORT RECEIVED FROM DAY SHIFT RN. PATIENT SITTING IN CHAIR. DENIES NEEDS AT THIS TIME. RT REMAINS IN ROOM.
--- NOTE | 2024-08-25 20:30 | NUR ---
PATIENT RESTING IN CHAIR. VS AND I&Os OBTAINED AND RECORDED. SCHEDULED MEDICATION ADMINISTERED, SEE EMAR. ASSESSMENT COMPLETE. DIMINISHED LUNG SOUNDS IN BILAT LOWER LUNGS. PATIENT HAS NO FURTHER NEEDS AT THIS TIME. CALL LIGHT IN REACH. DR PARKS IN ROOM TO ASSESS PATIENT.
--- NOTE | 2024-08-25 21:47 | NUR ---
CALL LIGHT ANSWERED. PT NEEDED TO USE BATHROOM. POWDERER 1PA WITH FWW TO BATHROOM. PT VOIDED AND ASSISTED BACK TO BED. PT GIVEN CLEAN ATTENDS. PT REQUESTING SOMETHING FOR SLEEP. RN NOTIFED. PT STATES NO FURTHER NEEDS AT THIS TIME. CALL LIGHT WITHIN REACH.
--- NOTE | 2024-08-25 22:06 | NUR ---
PRN SLEEP MEDICATION ADMINISTERED PER PATIENT REQUEST. PATIENT DENIES FURTHER NEEDS AT THIS TIME. CALL LIGHT IN REACH.
--- NOTE | 2024-08-25 23:56 | NUR ---
PATIENT RESTING IN BED. PATIENT WITH COMPLAINTS OF PAIN IN NOSE DUE TO NC. PATIENT PLACED ON OXY MASK AT THIS TIME. PATIENT STATES "THIS MASK IS MUCH BETTER". PATIENT HAS NO FURTHER NEEDS AT THIS TIME. CALL LIGHT IN REACH.
--- NOTE | 2024-08-26 02:04 | NUR ---
PATIENT RESTING IN BED ON BACK WITH EYES CLOSED. RESPIRATIONS EVEN AND UNLABORED. 02 SAT 91% ON 2.5L OXY MASK. CALL LIGHT IN REACH.
--- NOTE | 2024-08-26 03:58 | NUR ---
PATIENT RESTING IN BED ON BACK WITH EYES CLOSED. RESPIRATIONS EVEN AND UNLABORED. O2 SAT 93% ON 2.5L OXY MASK. CALL LIGHT IN REACH.
[2024-08-26 05:32] VITALS: BP 134/75
[2024-08-26 05:32] LABS: BASOPHILS 0.7 % (0-2); EOSINOPHILS 2.2 % (0-6); HEMATOCRIT 37.3 % (35.0-50.0); HEMOGLOBIN 12.1 g/dL (12.0-18.0); LYMPHOCYTES 29.7 % (24-44); MCH 30.2 (27-36); MCHC 32.4 g/dl (30-36); MCV 93.3 fl (81-99); MONOCYTES 15.9 % (0-12); NEUTROPHILS 51.5 % (39-80); PLATELET COUNT 190 K/uL (140-440); RDW 20.2 (10.5-15.0)
--- NOTE | 2024-08-26 05:36 | NUR ---
PATIENT RESTING IN BED. VS AND I&Os OBTAINED AND RECORDED. ASSESSMENT COMPLETE. NO FURTHER NEEDS AT THIS TIME. CALL LIGHT IN REACH.
[2024-08-26 05:47] LABS: ANION GAP 11.6 (7-21); BUN/CREATININE RATIO 28.98 (6.0-28.6); CALCIUM 8.8 mg/dL (8.5-10.1); CREATININE, SERUM 0.69 mg/dL (0.55-1.02); MAGNESIUM 1.9 mg/dL (1.8-2.4); POTASSIUM 3.6 mmol/L (3.5-5.1)
--- NOTE | 2024-08-26 06:50 | NUR ---
PATIENT UP TO BSC USING SBA TO VOID. PATIENT BACK TO BED. NO FURTHER NEEDS. CALL LIGHT IN REACH.
--- NOTE | 2024-08-26 07:20 | NUR ---
REPORT RECEIVED FROM CHEMIST ASSISTANT RN. PATIENT RESTING IN BED AWAKE. DENEIS ANY PAIN OR DISCOMFORT. REPORTS THE OXYMASK IS MORE COMFORTABLE TO WEAR THAN THAT NC. RN EDUCATED PATIENT ON FLUID INTAKE AND REGUARDS TO URINE OUTPUT. PATIENT PROVIDED WITH FRESH ICE WATER. DENIES ANY FURTHER NEEDS CALL LIGHT WITHIN REACH.
[2024-08-26] MEDS ORDERED: CEFTRIAXONE SODIUM 1 GM VIAL IV ONE (08:02)
[2024-08-26] MEDS ORDERED: AZITHROMYCIN 500 MG VIAL ONE (08:03)
[2024-08-26 08:20] VITALS: BP 126/67
--- NOTE | 2024-08-26 08:37 | NUR ---
PATIENT RESTING IN BED EATING BREAKFAST. AM MEDICATION ADMINSTERED. LUNG SOUNDS CORASE IN ALL FEILDS. SPO2 WNL ON 2L VIA NC WHILE PATIENT IS EATING BREAKFAST. IV SITE PATENT. IV ABX STARTED. NO NOTED EDMA. PATIENT REPORTS FEELING LIKE HER SOB IS " BETTER". NO FURTHER NEEDS CALL LIGHT WIHIN REACH.
--- NOTE | 2024-08-26 09:30 | NUR ---
ROUNDING ON PATIENT. DENEIS ANY NEEDS AT THIS TIME. CALL LIGHT WITHIN REACH.
--- NOTE | 2024-08-26 10:16 | NUR ---
PATIENT TRANSFERRED 1PA TO COMMODE TO VOID. 3 L NC DESAT TO 89% UPON TRANSFER. PATIENT RECOVERED SITTING. PATIENT DENIES SOB DURING TRANSFER. BACK TO BED. 700 CLEAR YELLOW OUTPUT NOTED. CALL LIGHT IN REACH
--- NOTE | 2024-08-26 11:12 | NUR ---
PT WITH PATIENT WALKING AT THIS TIME.
--- NOTE | 2024-08-26 12:20 | NUR ---
PATIENT UP IN RECLINER EATING LUNCH. SPO2 PER CPOX MACHINE 90% 2L NC. DENIES FURTHER NEEDS. CALL LIGHT IN REACH
--- NOTE | 2024-08-26 13:00 | NUR ---
IN TO ROUND ON PATIENT. RESTING IN RECLINER. SPO2 WNL ON 2L VIA OXYMASK. PATIENT APPEARS TO BE SLEEPING, RESPIRATIONS EVEN AND UNLABORED. CALL LIGHT WITHIN REACH.
[2024-08-26 13:24] VITALS: BP 123/70
--- NOTE | 2024-08-26 14:43 | NUR ---
INTO SEE PATIENT. PATIENT SITTING IN RECLINER OXYGEN ON. PATIENT STATES WILL PICK HER UP AT DISCHARGE. DENIES ANY OTHER CM NEEDS AT THIS TIME.
--- NOTE | 2024-08-26 14:45 | NUR ---
RT IN ROOM WITH PATIENT AT THIS TIME.
--- NOTE | 2024-08-26 14:48 | NUR ---
INCREASED O2 TO 3 LPM.
--- NOTE | 2024-08-26 17:30 | NUR ---
PATIENT SITTING IN RECLINER EATING DINNER. SPO2 WNL ON 3L O2 VIA NC. PATIENT DENIES ANY NEEDS AT THIS TIME. CALL LIGHT WITHIN REACH.
--- NOTE | 2024-08-26 18:20 | NUR ---
PATIENT RESTING IN RECLINER. DENEIS ANY NEEDS AT THIS TIME. CALL LIGHT WITHIN REACH.
[2024-08-26 19:04] VITALS: BP 143/89
--- NOTE | 2024-08-26 19:20 | NUR ---
REPORT RECEIVED FROM DAY SHIFT RN. PATIENT RESTING IN BED. DENIES NEEDS AT THIS TIME. CALL LIGHT IN REACH.
[2024-08-26 20:44] VITALS: BP 133/91
--- NOTE | 2024-08-26 20:45 | NUR ---
PATIENT RESTING IN BED. VS OBTAINED AND RECORDED. ASSESSMENT COMPLETE. CPOX IN PLACE. PATIENT DENIES SOB. PATIENT HAS NO FURTHER NEEDS AT THIS TIME. CALL LIGHT IN REACH.
[2024-08-26 20:48] VITALS: BP 133/91
--- NOTE | 2024-08-26 22:49 | NUR ---
PRN SLEEP MEDICATION ADMINISTERED PER PATIENT REQUEST. PATIENT HAS NO FURTHER NEEDS AT THIS TIME. CALL LIGHT IN REACH.
[2024-08-27] VITALS (10 sets, daily range): BP systolic 122–164; BP diastolic 68–101
--- NOTE | 2024-08-27 01:30 | NUR ---
PATIENT RESTING IN BED ON BACK WITH EYES CLOSED. RR EVEN AND UNLABORED. PATIENT O2 SAT 93% ON 3L OXY MASK. CALL LIGHT IN REACH.
--- NOTE | 2024-08-27 03:20 | NUR ---
PATIENT RESTING IN BED ON BACK WITH EYES CLOSED. RESPIRATIONS EVEN AND UNLABORED. CALL LIGHT IN REACH.
[2024-08-27 05:31] LABS: BASOPHILS 0.8 % (0-2); EOSINOPHILS 3.4 % (0-6); HEMATOCRIT 36.5 % (35.0-50.0); HEMOGLOBIN 12.1 g/dL (12.0-18.0); LYMPHOCYTES 32.1 % (24-44); MCH 30.1 (27-36); MCHC 33.1 g/dl (30-36); MCV 90.8 fl (81-99); MONOCYTES 14.4 % (0-12); NEUTROPHILS 49.3 % (39-80); PLATELET COUNT 189 K/uL (140-440); RBC 4.01 M/ul (4.3-5.7)
[2024-08-27 05:45] LABS: ANION GAP 10.6 (7-21); BUN/CREATININE RATIO 27.53 (6.0-28.6); CALCIUM 8.7 mg/dL (8.5-10.1); CREATININE, SERUM 0.69 mg/dL (0.55-1.02); MAGNESIUM 1.9 mg/dL (1.8-2.4); POTASSIUM 3.6 mmol/L (3.5-5.1)
--- NOTE | 2024-08-27 06:12 | NUR ---
PATIENT RESTING IN BED. VS AND I&Os OBTAINED AND RECORDED. PATIENT UP TO BATHROOM USING 1P SBA AND FWW TO VOID. PATIENT BACK TO BED. VS AND I&Os OBTAINED AND RECORDED. PATIENT HAS NO FURTHER NEEDS. CALL LIGHT IN REACH.
--- NOTE | 2024-08-27 07:37 | NUR ---
PATIENT IS LAYING ON HER BED.SHE IS AWAKE AND ALERT.STUBENT NURSE AND RN I NTRODUCE THEMSELVES TO PATIENT.PATIENT REPORT TO WANT TO TAKE HER BREAKFAST FROM HER BED AND MOVE TO HER CHAIR AFTER BREAKFAST.PATIENT DENIES ANY FURTHER NEEDS.
--- NOTE | 2024-08-27 07:46 | NUR ---
REPORT RECEIVED FROM CANDACE BOWSER. pt RESTING IN BED AWAKE, 3L OXYGEN BY OXYMASK IN PLACE. pt DENIES SOB. DENIES NEEDS. CALL LIGHT WITHIN REACH.
--- NOTE | 2024-08-27 07:54 | NUR ---
PHONE CALL FROM CT pt UPDATED ON ORDER. IV SITE FLUSHED WNL, SL. CALL LIGHT IN REACH. SN IN ROOM FOR VS.
--- NOTE | 2024-08-27 08:15 | NUR ---
EVALUATING PAIN.PATIENT STATES "I HAVE NO PAIN AT THIS TIME".PATIENT DENIES ANY OTHER NEEDS.CALL LIGHT WITHIN REACH.
[2024-08-27] MEDS ORDERED: predniSONE 20 MG TAB PO SCH (09:00)
--- NOTE | 2024-08-27 09:15 | NUR ---
PATIENT OUT WITH PT.PATIENT BED MADE.
[2024-08-27] MEDS ORDERED: CEFTRIAXONE SODIUM 1 GM VIAL IV ONE (09:40)
--- NOTE | 2024-08-27 09:42 | NUR ---
INTO SEE PATIENT. PATIENT SAYS SHE HAD A LITTLE BIT BETTER OF A NIGHT. PATIENT STILL PLANNING ON GOING HOME WITH WHEN MEDICALLY CLEARED. NO FUTHER CM NEEDS.
--- NOTE | 2024-08-27 10:16 | NUR ---
PT NOT AVAILABLE FOR VISIT. PROVIDED PRAYER.
--- NOTE | 2024-08-27 10:35 | NUR ---
IN ROOM FOR MEDICATION ADMINISTRATION, IV SITE LEAKING AT THIS TIME, REMOVED WNL. NEW IV STARTED IN RIGHT AC, 20 G. pt TOLERATED WELL. SCHEDULED MEDICATIONS ADMINISTERED. VSS. pt UP IN CHAIR FOR CT.
--- NOTE | 2024-08-27 10:40 | NUR ---
pt OFF FLOOR FOR CT SCAN AT THIS TIME.
--- NOTE | 2024-08-27 10:56 | NUR ---
pt BACK FROM CT. ASSESSMENT COMPLETE. LUNG SOUNDS CLEAR THROUGHOUT, SPO2 WNL, CPOX ON. 2L OXYGEN BY NC IN PLACE. pt DENIES SOB. IV SITE FLUSHED WNL, IV ANTIBIOTIC INFUSING ORDERED. pt UP IN CHAIR WITH CALL LIGHT AND PERSONAL SUPPLIES IN REACH. WARM BLANKET PROVIDED.
--- NOTE | 2024-08-27 10:56 | NUR ---
THIS MORNING BROUGHT FRESH ICE WATER. GOT HER A WASH CLOTH AND HAND TOWEL. ALSO PATIENT ASKED FOR DENTAL FLOSS. PUT THEM IN HER BATHROOM.
--- NOTE | 2024-08-27 11:47 | NUR ---
IMM LETTER COMPLETED. SIGNED AND COPY GIVEN TO PATIENT.
--- NOTE | 2024-08-27 11:52 | NUR ---
PATIENT HELPED TO THE BATHROOM.PATIENT HAD A SMALL BM.PATIENT WASHED HER FACE AND BRUSHED HER TEETH.PATIENT WALKED BACK TO HER CHAIR. SN OFFERED STAND BY ASSIST DURING THE ADL.PATIENT IS RESTING ON HER CHAIR WHILE VISITING WITH FAMILY.PATIENT DENIES ANY FURTHER NEEDS.CALL LIGHT AND PERSONAL ITEMS WITHIN REACH.
--- NOTE | 2024-08-27 12:17 | NUR ---
ROUNDED ON pt, SITTING UP IN CHAIR. SPO2 93% WITH 1L OXYGEN BY NC IN PLACE. IN ROOM. NO COMPLAINTS OF SOB. pt DENIES NEEDS.
--- NOTE | 2024-08-27 14:07 | NUR ---
pt SITTING UP IN CHAIR. SWITCHED TO 1L OXYGEN MASK FROM TX PER pt REQUEST DUE TO DRY NARES. ASSESSMENT COMPLETE. EXPIRATORY WHEEZES AUSCULTATED. pt DENIES SOB AT THIS TIME. DENIES AMBULATING AT THIS TIME. CALL LIGHT AND PERSONAL SUPPLIES IN REACH.
--- NOTE | 2024-08-27 16:30 | NUR ---
ROUNDED ON pt. UP IN CHAIR. 1L OXYGEN BY OXYMASK IN PLACE. pt UP TO RESTROOM WITH RAILROAD SIGNAL TECHNICIAN AND BACK TO CHAIR. NO SOB REPORTED, BREATHING UNLABORED. SPO2 WNL, CPOX ON.
--- NOTE | 2024-08-27 18:58 | NUR ---
ROUNDED ON pt. RESTING IN CHAIR AWAKE, 1L OXYGEN BY OXYMASK IN PLACE.
--- NOTE | 2024-08-27 19:39 | NUR ---
REPORT RECEIVED FROM DAY SHIFT RN. PATIENT RESTING IN CHAIR. DENIES NEEDS AT THIS TIME. CALL LIGHT IN REACH.
--- NOTE | 2024-08-27 19:40 | NUR ---
Got report from night manager nurse.
[2024-08-27] MEDS ORDERED: ALBUTEROL/IPRATROPIUM 3 ML NEB INH SCH (20:00)
--- NOTE | 2024-08-27 21:03 | NUR ---
NURSING RESIDENT OBTAINED VITALS AND I&O. PT STATES NO NEEDS AT THIS TIME. CALL LIGHT WITHIN REACH.
--- NOTE | 2024-08-27 22:14 | NUR ---
PT NEEDED TO USE BATHROOM. GEAR KEEPER ASSISTED PT TO BATHROOM WITH FWW. PT VOIDED AND HAD SMALL BM. PT ASSISTED TO BED. PT STATES NO FURTHER NEEDS AT THIS TIME. CALL LIGHT WITHIN REACH.
--- NOTE | 2024-08-27 22:45 | NUR ---
NUCLEAR MEDICINE OFFICER STATED PATIENT REFUSED TO WALK THIS EVENING. PATIENT RESTING IN BED. PRN SLEEP MEDICATION ADMINISTERED. ASSESSMENT COMPLETE. PATIENT DENIES FURTHER NEEDS AT THIS TIME. CALL LIGHT IN REACH.
--- NOTE | 2024-08-28 01:00 | NUR ---
PATIENT RESTING IN BED ON BACK. DENIES NEEDS AT THIS TIME. CALL LIGHT IN REACH.
--- NOTE | 2024-08-28 02:22 | NUR ---
CALL LIGHT ANSWERED. PT NEEDED TO USE BATHROOM. GIFT OFFICER SBA WITH FWW TO BATHROOM. PT VOIDED AND ASSISTED BACK TO BED. PT STATES NO FURTHER NEEDS AT THIS TIME. CALL LIGHT WITHIN REACH AND BED ALARM ON.
--- NOTE | 2024-08-28 03:53 | NUR ---
PATIENT RESTING IN BED ON BACK WITH EYES CLOSED. O2 SAT 93% ON 1L OXYMASK. CALL LIGHT IN REACH.
[2024-08-28 05:18] LABS: HEMOGLOBIN 12.4 g/dL (12.0-18.0)
[2024-08-28 05:22] LABS: BASOPHILS 0.4 % (0-2); EOSINOPHILS 0.4 % (0-6); HEMATOCRIT 37.6 % (35.0-50.0); LYMPHOCYTES 21.4 % (24-44); MCHC 33.1 g/dl (30-36); MCV 90.6 fl (81-99); MONOCYTES 12.1 % (0-12); NEUTROPHILS 65.7 % (39-80); PLATELET COUNT 205 K/uL (140-440); RBC 4.14 M/ul (4.3-5.7); RDW 19.6 (10.5-15.0)
[2024-08-28 05:23] VITALS: BP 169/93
--- NOTE | 2024-08-28 05:25 | NUR ---
ROLLER MECHANIC OBTAINED VITALS AND I&O. PT STATES NO NEEDS AT THIS TIME. CALL LIGHT WITHIN REACH AND BED ALARM ON.
[2024-08-28 05:28] LABS: ANION GAP 12.6 (7-21); BUN/CREATININE RATIO 22.22 (6.0-28.6); CREATININE, SERUM 0.54 mg/dL (0.55-1.02); POTASSIUM 3.6 mmol/L (3.5-5.1)
[2024-08-28 05:45] VITALS: BP 169/93
--- NOTE | 2024-08-28 07:15 | NUR ---
REPORT REC'D FROM MAGUE MARIA. PT RESTING QUIETLY IN BED, SIDERAILS UP X3, BED LOW POSITION AND LOCKED, CALL JOE IN REACH
[2024-08-28] MEDS ORDERED: CEFTRIAXONE SODIUM 1 GM VIAL IV ONE (07:53)
--- NOTE | 2024-08-28 09:10 | NUR ---
PT OOB TO BRP WITH FARM MANAGEMENT ADVISER. PLACED IN RECLINER FOR AM MEAL. CALL JOE IN REACH.
[2024-08-28 09:24] VITALS: BP 129/69
[2024-08-28 09:40] VITALS: BP 129/69
--- NOTE | 2024-08-28 11:50 | NUR ---
PT REMAINS SITTING UP IN CHAIR, TALKING ON PHONE. NO C/O VERBALIZED CALL JOE IN REACH
[2024-08-28] MEDS ORDERED: CEFDINIR300 MG PO (12:53)
[2024-08-28] MEDS ORDERED: PREDNISONE20 MG PO ×2 (12:59→13:00)
[2024-08-28] MEDS ORDERED: VENTOLIN HFA18 GM INH (13:05)
[2024-08-28 13:51] VITALS: BP 131/74
--- NOTE | 2024-08-28 13:52 | NUR ---
PT REMAINS SITTING UP IN CHAIR WITHOUT C/O. HAS BEEN ON RA WITHOUT DESATURATION SINCE THIS AM, WITH SPO2 93-96%, CPOX CONTINUES TO BE IN USE AT BEDSIDE. DISCUSSED DC ORDER WITH PATIENT, SPOUSE WILL BE ABLE TO PICK HER UP AT THE FRONT ENTRANCE AROUND 1600.
--- NOTE | 2024-08-28 14:57 | NUR ---
INTO CHECK ON PATIENT. PATIENT IS UP WALKING AROUND GETTING HER STUFF TOGETHER TO LEAVE AT 4. CPOX WAS TAKEN OFF PATIENT. SHE DENIES ANY NEEDS AT THIS TIME.
--- NOTE | 2024-08-28 15:20 | NUR ---
WHEN I WENT IN TO DO PATIENT'S 1400 VITALS AND I &O I ASKED HER IF SHE WOULD LIKE TO TAKE A SHOWER BEFORE SHE WENT HOME AND SHE SAID NO SHE WANTED TO WAIT UNTIL SHE GETS HOME. I DID SAY IF SHE CHANGED HER MIND CALL ME.
== END 2024-08-28 15:55 | disposition home or self-care (01) | DRG 193 ==
LOC: ED 05:28 → MS 05:30
PROVIDERS: Family Medicine; ADMIT Student in an Organized Health Care Education/Training Program; ATTEND Student in an Organized Health Care Education/Training Program
DX: J18.9 Pneumonia, unspecified organism (principal); J96.01 Acute respiratory failure with hypoxia; J44.1 Chronic obstructive pulmonary disease with (acute) exacerbation; J44.0 Chronic obstructive pulmonary disease with (acute) lower respiratory infection; I10 Essential (primary) hypertension; E03.9 Hypothyroidism, unspecified; M06.9 Rheumatoid arthritis, unspecified; Z96.653 Presence of artificial knee joint, bilateral; Z96.641 Presence of right artificial hip joint; I48.0 Paroxysmal atrial fibrillation; K59.09 Other constipation; R33.9 Retention of urine, unspecified; K21.9 Gastro-esophageal reflux disease without esophagitis; G47.00 Insomnia, unspecified; F39 Unspecified mood [affective] disorder; Z87.891 Personal history of nicotine dependence; Z79.890 Hormone replacement therapy; Z79.899 Other long term (current) drug therapy
CPT/HCPCS: 36415; 71045; 71260; 80048; 80053; 83735; 85025; 87502; 93005; 93010; 94640; 94664; 94667; 94668; 94762; 94799; 97116; 97161; 97165; 97530; 97535; A9270; J0456; J0696; J1650; J2919; J7060; J7121; J7512; Q9967; U0002

== ENCOUNTER 2025-05-01 10:48 | Inpatient (IN) | payer MEDICARE, OTHER ==
[2025-05-01] VITALS (8 sets, daily range): BP systolic 112–172; BP diastolic 70–110
[~2025-05-01] VITALS: Ht 167.6 cm; Wt 79.1 kg
[~2025-05-01 10:48] MED LIST changes: +CEFDINIR300 MG PO; -FOLIC ACID1 MG PO; +MELOXICAM15 MG PO; +PREDNISONE20 MG PO; +VENTOLIN HFA18 GM INH; +ZOLPIDEM TART12.5 MG PO
[2025-05-01] MEDS ORDERED: ALBUTEROL/IPRATROPIUM 3 ML NEB INH ONE (11:45)
[2025-05-01 12:08] LABS: BASOPHILS 0.4 % (0.1-1.2); EOSINOPHILS 0.8 % (0.7-5.8); LYMPHOCYTES 6.8 % (19.3-51.7); MCH 29.2 PG (25.6-32.2); MCHC 31.6 g/dL (32.2-35.5); MCV 92.4 fL (79.4-94.8); MONOCYTES 7.5 % (4.7-12.5); NEUTROPHILS 83.7 % (34.0-71.1); RBC 3.83 M/uL (3.93-5.22)
[2025-05-01 12:30] LABS: ALT (SGPT) 25.0 U/L (14-59); AST (SGOT) 29.0 U/L (15-37); GLOMERULAR FILTRATION RATE,EST 89.0 mL/min (>60); PROTEIN, TOTAL 6.7 g/dL (6.4-8.2); UREA NITROGEN 19.0 mg/dL (7-18)
[2025-05-01 12:49] LABS: INFLUENZA B NAA NEGATIVE (NEGATIVE); RESPIRATORY SYNCYTIAL VIR NAA NEGATIVE (NEGATIVE)
[2025-05-01 13:06] LABS: LACTIC ACID, BLOOD 1.5 mmol/L (0.4-2.0)
[2025-05-01] MEDS ORDERED: GUAIFENESIN/CODEINE 5 ML UDC PO PRN (14:30)
[2025-05-01] MEDS ORDERED: LACTATED RINGER'S 1,000 ML IV SCH (15:00)
[2025-05-01] MEDS ORDERED: ACETAMINOPHEN 325 MG TAB PO PRN (15:00)
--- NOTE | 2025-05-01 15:47 | NUR ---
PT TRANSPORTED FROM ED TO CCU ROOM 128 VIA STRETCHER WITH MONITOR. PT SPOUSE ACCOMPANIED PATIENT TO ROOM. PT PLACED ON MAINTENANCE HELPER UTILITY ENGINEER, SPO2, ORIENTED TO ROOM AND CALL JOE. ADMISSION ASSESSMENTS COMPLETED. PT A&OX4, FREQUENTLY RESTING WITH EYES CLOSED, EASILY AROUSED WITH VOICE AND APPROPRIATE RESPONSES. PT HAS PRODUCTIVE COUGH WITH GREEN SPUTUM, O2 SATS NOTED TO DECREASE TO 84% WITH COUGHING AND REMAINS AT 89%. PT PLACED ON 0.5LNC, SATS 90-92%, L/S DECREASED TO RLL. HRR, SR 80'S. ABD SOFT, BS HYPOACTIVE, REPORTS LAST BM LAST WEEK, DR. AGUILAR AWARE. PT NOTED WITH JAUNDICE COLORING TO SKIN, NO EDEMA. 20G IV TO R A/C INFUSING LR AT 100 ML/HR. PT PLANNED FOR CT PLACEMENT WITH DR. LEAL IN OR PENDING LABS. SPOUSE AWARE. CALL JOE WITHIN REACH, BED LOW POSITION AND LOCKED. SR UP X 3. DR. LEAL AND DR. AGUILAR IN TO SEE PATIENT.
[2025-05-01] MEDS ORDERED: ALBUTEROL SULFATE 0.083% 3 ML VIAL INH PRN (16:15)
[2025-05-01 16:42] LABS: INR 1.13 (0.80-1.30); PROTIME 13.7 Sec (11.2-14.2)
[2025-05-01] MEDS ORDERED: ACETAMINOPHEN-1 EAC1 PO (17:29)
[2025-05-01] MEDS ORDERED: ZITHROMAX250 MG PO (17:31)
[2025-05-01] MEDS ORDERED: BUPROPION XL150 MG PO (17:49)
[2025-05-01] MEDS ORDERED: FOLIC ACID1 MG PO (17:49)
[2025-05-01] MEDS ORDERED: LEVOTHYROXINE125 MCG PO (17:49)
[2025-05-01] MEDS ORDERED: METHOTREXATE2.5 MG PO (17:51)
[2025-05-01] MEDS ORDERED: PRILOSEC OTC20 MG PO (17:51)
[2025-05-01] MEDS ORDERED: COZAAR25 MG PO ×2 (17:52→17:53)
--- NOTE | 2025-05-01 18:53 | NUR ---
PT REPORTS PAIN TO R SCAPULA AFTER COUGHING. L/S WHEEZES TO RUL, DECREASED TO RLL. PT NPO AT THIS TIME FOR CT PLACEMENT. CALL TO DR. AGUILAR, WAITING FOR RETURN CALL.
[2025-05-01] MEDS ORDERED: MIDAZOLAM HCL 2 MG/2 ML VIAL ONE (19:22)
[2025-05-01] MEDS ORDERED: LIDOCAINE HCL 2% 5 ML SDV ONE (19:22)
[2025-05-01] MEDS ORDERED: fentaNYL citrate 100 MCG/2 ML VIAL ONE (19:24)
--- NOTE | 2025-05-01 19:25 | NUR ---
RECEIVED REPROT FROM DAY SHIFT RN. PATIENT IS LEAVING [facility] AT THIS TIME.
--- NOTE | 2025-05-01 20:16 | NUR ---
05/01/252015 Daniela [place] 2010: PT INTO CCU. REPORT GIVEN TO CCU RN'S.
--- NOTE | 2025-05-01 20:20 | NUR ---
PATIENT BACK FROM SURGERY REPORT RECEIVED FROM SURGERY RN. PATIENT HAS CHEST TUBE IN PLACE ON RIGHT SIDE AND IS FUNCTIONING WNL. PATIENT DOES HAVE NOTED DRY COUGH. PATIENT IS ON 3L VIA NC. PATIENT REPORTS PAIN AT A 5/[address] LEAL AT BEDSIDE AND IS TO PLACE ORDERS
[2025-05-01] MEDS ORDERED: ACETAMINOPHEN/CODEINE #3 1 EA TAB PO PRN (20:30)
--- NOTE | 2025-05-01 20:38 | NUR ---
IMAGING IN TO COMPLETE CHEST XRAY. PATIENT GIVEN NH COUGH MEDICATION PER ORDER. CHIEF LOCK OPERATOR NOTIFIED TO GET PATIENT PAIN MEDICATION LOCATED ON MEDICAL FLOOR PYXIS.
--- NOTE | 2025-05-01 20:44 | NUR ---
HS MEDS AND CARE DONE, PT IS WANTING TO TRY TO GO TO SLEEP. IN AT BEDSIDE. PT POSITIONED FOR COMFORT, WOUND VAC HAS ONLY ALARMED OCCASIONALLY IN THE LAST HOUR, WILL CONT TO MONITOR.
[2025-05-01] MEDS ORDERED: MELATONIN 3 MG TAB PO PRN (21:00)
--- NOTE | 2025-05-01 21:03 | NUR ---
PATIENT ASSESMENT COMPLETED. PATIENTS CHEST TUBE DRESSING REINFORCED WITH OPSITE. PATIENT RATES PAIN AT A 5/10 WITH COUGHING IN RIGHT LUNG, PRN PAIN MEDICATION GIVEN PER ORDER. PATIENT PROVIDED ICE CHIPS AND FRESH ICE WATER. PATIENT DENIES ANY FURTHER NEEDS. PATIENTS FAMILY AND PATIENT UPDATED ON PLAN OF CARE AND ALL QUESTIONS ANSWERED.
[2025-05-01] MEDS ORDERED: MENTHOL/CETYLPYRD CL 1 LOZ LOZENGE PO PRN (21:15)
[2025-05-01] MEDS ORDERED: MENTHOL/CETYLPYRD CL 1 LOZ LOZENGE ONE (21:17)
--- NOTE | 2025-05-01 22:17 | NUR ---
CALLED TO ASK FOR NEW ORDERS FOR ASPERCREAM AND LIDODERM PATCH FOR HER BACK, PATIENT REPORTS SHE USES THESE AT HOME FOR HER CHRONIC BACK PAIN. NEW ORDERS PLACED.
[2025-05-01] MEDS ORDERED: TROLAMINE SALICYLATE 35.4 GM TUBE TOP PRN (22:30)
[2025-05-01] MEDS ORDERED: LIDOCAINE HCL 4% 1 EACH PATCH TD SCH ×2 (22:30→23:45)
--- NOTE | 2025-05-01 22:37 | NUR ---
PATIENT REPOSITIONED IN BED. LIDOCAINE PATCH PLACED ON RIGHT SHOULDER. PATIENT DENIES ANY SOB. PATIENT HAS PATENT CHEST TUBE IN PLACE. PATIENT REMAINS ON 3L VIA NC. PATIENT HAS SCDS IN PLACE. PATIENT RATES PAIN AT A 2/10 ON RIGHT SIDED CHEST AND DENIES ANY INTERVENTION AT THIS TIME. PATIENT DENIES ANY FURTHER NEEDS. CALL LIGTH IN REACH. BED ALARM ON FOR SAFETY.
--- NOTE | 2025-05-01 23:00 | NUR ---
REPORT FROM LAKE Barraza RN, TO ASSUME CARE AT THIS TIME. BEDSIDE REPORT AND REVIEW OF LINES AND TUBES.
[2025-05-01] MEDS ORDERED: ZOLPIDEM TARTRATE 5 MG TAB PO PRN (23:45)
[2025-05-02] VITALS (12 sets, daily range): BP systolic 111–157; BP diastolic 62–91
--- NOTE | 2025-05-02 00:02 | NUR ---
CALLED FOR PATIENT REQUESTED MARILEEIEN SHE TAKES IT AT HOME AND ANOTHER LIDO DERM PATCH PER PATIENT REQUEST. NEW ORDERS GIVEN.
[2025-05-02] MEDS ORDERED: ZOLPIDEM TARTRATE 5 MG TAB PO PRN (00:30)
--- NOTE | 2025-05-02 02:43 | NUR ---
ROUDNING ON PATIENT, SCHEDULED ABX ADMINISTERED, CHEST TUBE ASSESSED, NO LEAKS, TO WALL SUCTION ORDERED. PATIENT IS RESTING IN BED AT A HIGH CASTELLON POSITION AT 60 DEGREES, THIS IS HER PREFERENCE AT THIS TIME, HER EYES ARE CLOSED RESPIRATIONS 18/MIN, NO DISTRESS NOTED AT THIS TIME.
--- NOTE | 2025-05-02 04:19 | NUR ---
PATIENT HAS NOT YET VOIDED POST PROCEDURE, PATIENT BLADDER SCANNED FOR 168ML, PATIENT REPORTS NO URGE TO VOID. CALLED TO REPORT, NEW ORDER FOR 1L BOLUS LR.
[2025-05-02] MEDS ORDERED: LACTATED RINGER'S 1,000 ML IV ONE (04:30)
[2025-05-02 05:13] LABS: BASOPHILS 0.3 % (0.1-1.2); EOSINOPHILS 0.2 % (0.7-5.8); LYMPHOCYTES 10.5 % (19.3-51.7); MCH 29.5 PG (25.6-32.2); MCHC 31.6 g/dL (32.2-35.5); MCV 93.4 fL (79.4-94.8); MONOCYTES 8.8 % (4.7-12.5); NEUTROPHILS 78.9 % (34.0-71.1); RBC 3.32 M/uL (3.93-5.22)
[2025-05-02 05:27] LABS: ALT (SGPT) 19.0 U/L (14-59); AST (SGOT) 18.0 U/L (15-37); GLOMERULAR FILTRATION RATE,EST 88.0 mL/min (>60); PROTEIN, TOTAL 5.6 g/dL (6.4-8.2); UREA NITROGEN 16.0 mg/dL (7-18)
--- NOTE | 2025-05-02 06:59 | NUR ---
PATIENT REPORTS PAIN 6/10, TYLENOL WITH CODEINE ADMINISTERED PRN, PATIENT REPORTS NO URGE TO VOID OF YET. SHE REPORTS NO OTHER NEEDS, REPOSITIONED, CALL LIGHT IN REACH.
--- NOTE | 2025-05-02 09:50 | NUR ---
PATIENT UP TO BSC TO VOID AND VOIDED 475 VERY CONCENTRATED URINE. PT ALSO HAD SOME COUGHING INCONTINENCE IN ATTENDS. NEW ATTENDS IN PLACE. PT'S IN ROOM. BOTH PATIENT AND EXPRESS THAT SHE HAS BEEN STRUGGLING WITH CONSITPATION LATELY AND OVER THE COUNTER STOOL SOFTENERS HAVE NOT BEEN HELPFUL THUS FAR. PT THINKS IT HAS BEEN 5 DAYS OR SO SINCE LAST BM. WILL DISCUSS WITH MD. IV ABX INFUSING. PT REMAINS ON 2 L NC. CHEST TUBE REMAINS IN PLACE CONNECTED TO CONTIUOUS WALL SUCTION, -20 CM H20. NO BUBBLING NOTED IN AIR DRIVER MESSENGER CHAMBER. CALL LIGHT WITHIN REACH.
--- NOTE | 2025-05-02 11:40 | NUR ---
UR CLINICAL REVIEW: 2 MN FOR VERSALUS-PER TRIM MACHINE OPERATOR MEETS INPT FOR PNEUMONIA/EMPYEMA WITH NEED FOR CHEST TUBE, SERIAL LABS, RT AND MONITORING MEDICARE INPT 05/01/25 @ 1458 ORDER MATCHES REG NO AUTH REQUIRED PER MEDICARE GUIDELINES DISCHARGE TO HOME WHEN STABLE
[2025-05-02] MEDS ORDERED: PHARMACY RENAL DOSE ADJUSTMENT 1 DOSE MISC PO SCH (12:00)
[2025-05-02] MEDS ORDERED: SENNOSIDES/DOCUSATE 1 EA TAB PO SCH (12:32)
[2025-05-02] MEDS ORDERED: POLYETHYLENE GLYCOL 3350 1 PACKET PO SCH (12:32)
--- NOTE | 2025-05-02 13:45 | NUR ---
Spoke with Deisy. She states she is usually active, drives. She does not use any DME at home. She plans on returning to home with her spouse when she discharges. He will assist her and complete Household tasks. She does have a walker available that her keeps in the car. She is also considering getting a walker from [place] if she needs one at discharge. She denies any needs. No concerns for finances or safety. Her home has 1 steps. She currently is using 02, but does not believe she will need on discharge. Will fu with pt tomorrow.
--- NOTE | 2025-05-02 13:58 | NUR ---
INTO ROOM TO START IV ABX. PT RESTING WITH EYES CLOSED, AWAKENS TO VERBAL STIMULI. DENIES NEEDS, CALL LIGHT IN REACH
--- NOTE | 2025-05-02 14:19 | NUR ---
PATIENT RESTING IN BED AND HER HAS RETURNED. PT REMAINS ON 2 L NC. NO FLUCTUATING OR BUBBBLING NOTED AT THIS TIME ON CHEST TUBE. PT HAS BEEN ON THE DROWSY SIDE TODAY AND STATES SHE IS RESTING WELL. SP02 IS 95% AND RR 21, EVEN AND UNLABORED. PT DENIES ANY SHORTNESS OF BREATH AND COUGHING HAS BEEN MINIMAL TODAY THUS FAR.
--- NOTE | 2025-05-02 15:00 | NUR ---
Patient was admitted at high risk for malnutrition due to recent decreased appetite and 1-13 lb weight loss. Patient states she has lost 4-5 lbs in the past week or so from having a decreased appetite. She reports no chewing or swallowing problems, no food allergies. She is on a regular diet. She ate 75% of breakfast and 80% of lunch today. States she doesn't like cold cereal and doesn't want milk for breakfast but wants milk for lunch - this was entered into [employer]. Patient is at low nutrition risk. Nutrition Goal: Patient to consume 75% or greater of meals while here. RD to follow up in 10 days unless consulted sooner.
--- NOTE | 2025-05-02 18:08 | NUR ---
PATIENT MORE PAINFUL THIS AFTERNOON AFTER GETTING UP TO CHAIR, HAVING A BED BATH AND VOIDING TO [facility]. WHILE SITTING IN CHAIR, PT'S PAIN INCREASED TO AN 8/10 AND BROUGHT HER TO TEARS. PT DESIRED TO GET BACK TO BED AND HELPED WITH THIS. PT'S PETRA REMAINS AT BEDSIDE. PT WAS GIVEN PRN TYLENOL W/CODEINE FOR COUGH. THEN DR. LEAL IN TO SEE PATIENT AROUND 1700 AND PLAN OF CARE DISCUSSED. ADDITIONAL PAIN MEDICATION DISCUSSED WITH MD AND ORDER REC'D TO ORDER 10 MG OXYCODONE Q6 HRS PRN PAIN. WARM COMPRESS ALSO PROVIDED FOR PATIENT'S PAIN.
[2025-05-02] MEDS ORDERED: OXYCODONE HCL 5 MG TAB PO PRN (18:15)
[2025-05-02] MEDS ORDERED: OXYCODONE/APAP 5/325 TAB PO PRN (18:15)
--- NOTE | 2025-05-02 19:45 | NUR ---
REJIING ON PATIENT AFTER REPORT FROM EDMAR Sotelo RN, PATIENT RESTING IN BED HIGH CASTELLON POSITION, PATIENT ALERT TO NAME, SHE REPORTS PAIN IS MILD AT REST AT THIS TIME, OXYCODNE WAS ADMINISTERED BY PAMELLA AT 1845. DISCUSSED PLAN OF CARE FOR TONIGHT INCLUDING MEDICATIONS AND ONCE PAIN IS WELL MANAGED REPOSITIONING TO RIGHT SIDE WITH HEAD OF BED LOWERED TO PROMOTE DRAINAGE FROM RIGHT CHEST TUBE.
[2025-05-02] MEDS ORDERED: LIDOCAINE PATCH REMOVAL 1 EA TD SCH ×2 (21:00)
--- NOTE | 2025-05-02 21:10 | NUR ---
HS MEDICATIONS COMPLETED, PATIENT REPORTS PAIN IS WELL MANAGED AT THIS TIME, PATIENT ONE PERSON UP TO BEDSIDE COMMODE, SHE VOIDED 325ML, MEDIUM/DARK YELLOW URINE. CAREFUL HANDLING OF CHEST TUBE BY RN WITH ACTIVITY. CHEST UBE INSERTION SITE DRESSING SUPERIOR EDGE IS NOTED TO HAVE ROLLED SLIGHTLY, RE-ENFORCED WITH FOAM TAPE. PATIENT BACK TO BED, POSITIONED WITH PILLOWS TO HER RIGHT SIDE, HEAD ONLY SLIGHTLY ELEVATED, PATIENT VERBALIZED THAT THIS POSITION IS TOLERABLE FOR NOW. BED ALARM ON FOR PATIENT SAFETY AND CALL LIGHT IN REACH. CHEST TUBE ASSESSMENT, NO LEAKS, NO CREPITUS NOTED ON AUSCULTATION OR ON LIGHT PALPATION.
[2025-05-03] VITALS (8 sets, daily range): BP systolic 120–162; BP diastolic 67–84
--- NOTE | 2025-05-03 05:00 | NUR ---
PATIENT NOTED TO HAVE ARTIFACT ON TELEMETRY, THIS RN INTO ROOM TO CHECK ON PATIENT. PATIENT ALERT AND ORIENTED, REPORTS SHE DROPPED THE CALL LIGHT. PATIENT REPORTS SHE NEEDS TO GET UP TO USE THE TOILET. ONE PERSON ASSIST WITH CAREFUL MANAGEMENT OF CHEST TUBE AND ATRIUM. SUMI NOTED THAVE INCREASE PAIN WITH ACTIVITY, SHE VOIDED 600ML CLEAR YELLOW URINE AND HAD FLATUS. PATIENT THEN BACK TO BED, SHE REQUIRED INCREASE OF OXYGEN FROM 2L TO 4L TO MAINTAIN GREATER THAN 90% OXYGEN SATURATION WITH ACTIVITY AND RECOVERY, PATIENT NOTED TO BE SHORT OF BREATH WITH FREQUENT COUGH AND PRODUCTIVE SPUTUM. PATIENT PROVIDED OXYCODONE 5MG FOR PAIN AT RIGHT LATERAL CHEST. WARM PACK PROVIDED, PATIENT ALSO PROVIDED NEBULIZER TREATMENT TO TREAT SHORT OF BREATH WITH WHEEZE, ROBITUSSIN WITH CODEINE. CHEST TUBE ASSESSMENT WNL, NO LEAKS, NO CREPITUS, ATRIUM WNL.
[2025-05-03 05:20] LABS: BASOPHILS 0.4 % (0.1-1.2); EOSINOPHILS 1.1 % (0.7-5.8); LYMPHOCYTES 15.6 % (19.3-51.7); MCH 29.2 PG (25.6-32.2); MCHC 31.8 g/dL (32.2-35.5); MCV 91.6 fL (79.4-94.8); MONOCYTES 9.1 % (4.7-12.5); NEUTROPHILS 73.0 % (34.0-71.1); RBC 3.91 M/uL (3.93-5.22)
[2025-05-03 05:35] LABS: ALT (SGPT) 17.0 U/L (14-59); AST (SGOT) 19.0 U/L (15-37); GLOMERULAR FILTRATION RATE,EST 95.0 mL/min (>60); PROTEIN, TOTAL 6.1 g/dL (6.4-8.2); UREA NITROGEN 10.0 mg/dL (7-18)
--- NOTE | 2025-05-03 05:41 | NUR ---
PATIENT REPORTS FEELING "BETTER" AT THIS TIME. NO LONGER FEELING SHORT OF BREATH, NOW 92% ON 2L OXYGEN N.C., RESPIRATORY RATE 19/MIN. RESTING BACK IN BED IN MORE RELAXED POSITION.
--- NOTE | 2025-05-03 07:22 | NUR ---
HANDOFF REPORT RECEIVED FROM CANDACE UTRNER. ALL QUESTIONS ANSWERED. PATIENT RESTING IN BED. VITAL SIGNS STABLE. CALL LIGHT IN REACH.
--- NOTE | 2025-05-03 08:26 | NUR ---
AT BEDSIDE. SHALA RN AND EDMAR MARIA IN ROOM
--- NOTE | 2025-05-03 08:34 | NUR ---
PATIENT ASSESSMENT COMPLETE. PATIENT SITTING UP IN BED. PATIENT ALERT AND ORIENTED. HR 70'S, NSR. SPO2 92%. PATIENT DESATURATES TO 87% AT TIMES WITH COUGHING. PATIENT OXYGEN TITRATED FROM 2 L NC TO 4 L NC. SPO2 NOW 92%. COUGH IS PRODUCTIVE. PATIENT NOTED TO PRODUCE GREEN PHLEGM. BOWEL TONES ACTIVE. PATIENT DENIES NAUSEA. PATIENT REPORTS PAIN 7/10 LOCATED AT THE CHEST TUBE INSERTION SITE. CMS INTACT. PATIENT DECLINES USING SCDS AT THIS TIME. VITAL SIGNS STABLE. IV SITES INTACT AND WNL. IVF INFUSING PER EMAR. CHEST TUBE INSERTION SITE WNL. NO EVIDENCE OF CREPITUS. CHEST TUBE INTACT AND WNL. THIS RN AND EDMAR MARIA REMAIN IN ROOM.
[2025-05-03] MEDS ORDERED: buPROPion HCL XL 150 MG TAB.XL.24H PO SCH (09:00)
--- NOTE | 2025-05-03 09:25 | NUR ---
RT IN ROOM ADMINISTERING PRN NEB. PATIENT SITTING UP IN BED. VITAL SIGNS STABLE. CALL LIGHT IN REACH
--- NOTE | 2025-05-03 09:45 | NUR ---
PT/OT PRESENT IN ROOM.
--- NOTE | 2025-05-03 10:10 | NUR ---
Spoke with Deisy. She denies needs. Offered coloring books or word search. Pt declines and states she will just rest. No needs at this time.
--- NOTE | 2025-05-03 10:21 | NUR ---
PATIENT SITTING UP IN CHAIR. BLINDS OPEN. PATIENT PROVIDED EDUCATION ON INCENTIVE SPIROMETER. PATIENT DENIES NEEDS. IVF INFUSING PER EMAR. VITAL SIGNS STABLE. SPO2 91% ON 4 L NC. NO EVIDENCE OF ACUTE DISTRESS NOTED. CALL LIGHT IN REACH
--- NOTE | 2025-05-03 11:33 | NUR ---
PATIENT UP IN CHAIR RESTING WITH EYES CLOSED. PATIENT EASILY AROUSABLE TO VERBAL STIMULI. HR 70'S, NSR. RR EVEN AND UNLABORED. SPO2 93% ON 3 L NC. CHEST TUBE INTACT AND WNL. CHEST TUBE INSERTION SITE INTACT AND WNL, NO EVIDENCE OF CREPITUS. PATIENT DENIES BATHROOM NEEDS. PATIENT REMAINS AFEBRILE. VITAL SIGNS STABLE. IVF INFUSING PER EMAR. IV SITES INTACT AND WNL. NO EVIDENCE OF ACUTE DISTRESS NOTED. CALL LIGHT IN REACH.
[2025-05-03] MEDS ORDERED: MAGNESIUM CITRATE 300 ML BTL PO ONE (11:45)
--- NOTE | 2025-05-03 12:19 | NUR ---
PATIENT SITTING UP IN CHAIR EATING LUNCH
--- NOTE | 2025-05-03 13:10 | OR ---
[facility] [address], [place] [address] Signed DATE OF OPERATION: 05/01/2025 SURGEON: Brenda Leal MD PREOPERATIVE DIAGNOSIS: Right advanced pneumonia with possible lung abscess and secondary right pleural effusion, said to be multiloculated. POSTOPERATIVE DIAGNOSIS: Non-loculated pleural fluid 800 mL, turbid in appearance. PROCEDURE: Placement of right 36-Honduran chest tube. ANESTHESIA: Intravenous sedation, propofol; Geri Genaro, ROLLER LEVELER OPERATOR and local 10 mL of 0.25% Marcaine with epinephrine. INDICATION: This 80-year-old white woman has had several days of increasing cough and dyspnea and was admitted by Dr. Bangura having the patient present to the emergency room and evaluated by Dr. Silva with episodic persistent cough. Chest x-ray showing right pleural effusion and a CT scan showing rather significant right pleural effusion as well as an enlarged liver. It was reported that she had a loculated effusion, but that is not consistent with my evaluation of the CT. She did have parenchymal compression and an area that was suggestive though not diagnostic of possible lung abscess. The patient's white count was greater than 22,000. She has had no hemoptysis. I have recommended a chest tube be inserted rather than simple thoracentesis to evacuate the pleural space as much as possible. She may additionally require thoracoscopy and on that basis, I have recommended to do the procedure in the operating room with IV sedation with conversion to a more advanced approach if necessary. The risks of bleeding, infection, and so forth were reviewed with the patient and her . They understand and wished to proceed. FINDINGS: Entry of the pleural space was without problem. There were no discernible loculations upon the pleural cavity interrogation with the index finger. A 36-Honduran chest tube was placed which showed turbid yellow fluid, but it was not thick pus. About 800 mL in aggregate was extracted. Good respiratory aeration was noted. At conclusion, she had a fair amount of coughing, which of course is suggestive of re-expansion of the lung. Electronically Signed By: BRENDA LEAL MD 05/03/25 1310 PATIENT NAME: KAYKAY CANDELARIA OPERATIVE REPORT DATE OF : 49 REPORT #: [id number] PHYSICIAN: BRENDA LEAL MD PCP: KENDALL RODRIGUEZ PAC REPORT IS CONFIDENTIAL AND NOT TO BE RELEASED WITHOUT AUTHORIZATION [facility] [address], [place] [address] Signed PROCEDURE IN DETAIL: She was brought to the operating room, placed in the semi-upright position with the left side down. The right chest wall was prepared with chlorhexidine solution and draped sterilely. An area lateral to the nipple was identified in the anterior to mid axillary line. Injection of 0.25% Marcaine with epinephrine was undertaken. A transverse incision was made and using a Karie clamp, subcutaneous tissue was . The 6th rib was identified and with further blunt dissection directly over the rib after additional anesthetic was administered, the pleural space was entered. Egress of considerable amount of turbid yellow fluid was noted. Index finger was passed into the pleural space and interrogation of the pleural space showed no sign of loculations or other issues. A 36-Honduran chest tube was into the site and allowed to pass in its natural course in the cephalad direction. The tube was ultimately applied to an Atrium Pleur-evac type device and sewn in place with 2-0 nylon suture. At least 400 mL were noted in the Atrium device and at least that much was extracted before that point. An Acticoat dressing was applied to the exit site. OpSite applied and pink tape applied to the connection of the chest tube to the Atrium device itself. Two point fixation was undertaken. The patient had a fair amount of coughing at conclusion, which was settling down by exit from the operating room. She was taken to the intensive care unit for further management and a postprocedure chest x-ray. MD LASHONDA March/WANG /[id number] cc: Dr. Willem Rodriguez PA-C Copies: KENDALL RODRIGUEZ PAC ~ Electronically Signed By: BRENDA LEAL MD 05/03/25 1310 PATIENT NAME: KAYKAY CANDELARIA OPERATIVE REPORT DATE OF : 49 REPORT #: [id number] PHYSICIAN: BRENDA LEAL MD PCP: KENDALL RODRIGUEZ REPORT IS CONFIDENTIAL AND NOT TO BE RELEASED WITHOUT AUTHORIZATION
--- NOTE | 2025-05-03 14:08 | NUR ---
PATIENT REMAINS UP IN CHAIR AND HAS FINISHED HER LUNCH. PT STILL WORKING ON DRINKING MAG [employer]. DR. LEAL IN TO SEE PATIENT AND PLAN DISCUSSED TO COLLECT MORE PLEURAL FLUID FOR TESTING. PT DENIES FURTHER NEEDS. REMAINS ON 3 L NC.
--- NOTE | 2025-05-03 14:16 | NUR ---
IV ABX INFUSING PER EMAR. PATIENT SITTING UP IN CHAIR. PATIENT DENIES NEEDS. VITAL SIGNS STABLE. CALL LIGHT IN REACH. CHEST TUBE INTACT AND WNL
--- NOTE | 2025-05-03 14:35 | NUR ---
PT SITTING UP IN CHAIR AND BEGAN VOMITING, APPROX 600 MLS OUT OF YELLOW-COLORED/FOOD PARTICLES OUT. PRN ZOFRAN GIVEN. PROVIDED PT WITH WIPES AND ASSISTED WITH CLEANING UP. PT REPORTS PAIN REMAINS TOLERABLE AT THIS TIME, REMAINS SITTING IN CHAIR. O2 IN PLACE, 92%. CALL LIGHT IN REACH
--- NOTE | 2025-05-03 14:59 | NUR ---
THIS RN IN ROOM. PATIENT SITTING UP IN CHAIR. PATIENT DENIES NEEDS. VITAL SIGNS STABLE. CALL LIGHT IN REACH
--- NOTE | 2025-05-03 16:44 | NUR ---
MED REC COMPLETE
--- NOTE | 2025-05-03 16:45 | NUR ---
PATIENT ASSISTED UP TO BATHROOM. 1 PA W/ FWW. PATIENT STEADY WHILE AMBULATING. BED BATH COMPLETE. NEW GOWN PLACED. PATIENT DENIES SOB W/ EXERTION. PATIENT BACK TO BED. CHEST TUBE INTACT. IVF INFUSING PER EMAR. PATIENT UNABLE TO HAVE BM. PATIENT VOIDS CONCENTRATED URINE X1 UM D/T MISSING THE HAT, 100 ML OF ACCOUNTABLE URINE. PATIENT DENIES FURTHER NEEDS. CALL LIGHT IN REACH. S/O REMAINS IN ROOM
[2025-05-03 17:19] LABS: PH, BODY FLUID 8.32
--- NOTE | 2025-05-03 17:20 | NUR ---
PATIENT SITTING UP IN BED. PRN PAIN MEDICATION ADMINISTERED PER EMAR. PATIENTS S/O AT BEDSIDE. NO NEEDS IDENTIFIED. CALL LIGHT IN REACH
[2025-05-03 18:03] LABS: APPEARANCE, BODY FLUID RED ,TURBID; MONONUCLEAR CELLS, BODY FLUID 8 %; PMNS, BODY FLUID 92 %; RBC, BODY FLUID 17833 /mm3; WBC, BODY FLUID 1222 /mm3
[2025-05-03 18:04] LABS: SOURCE, BODY FLUID Pleural fluid
--- NOTE | 2025-05-03 20:45 | NUR ---
PATIENT UP TO BEDSIDE COMMODE TO VOID, SHE VOIDED 400ML. SHE REPORTS PAIN 6/10 AT RIGHT LATERAL CHEST. PATIENT BACK TO BED, HS MEDICATIONS WITH ROBITUSSIN AC ADMINISTERED FOR COUGH AND PAIN. AMBIEN FOR INSOMNIA ADMINSITERED PRN. PATIENT REPORTS NO OTHER NEEDS AT THIS TIME. CALL LIGHT IN REACH.
[2025-05-04] VITALS (9 sets, daily range): BP systolic 89–146; BP diastolic 62–89
--- NOTE | 2025-05-04 02:26 | NUR ---
PATIENT RESTING IN BED, EYES CLOSED RESPIRATIONS 18/MIN, NO DISTRESS NOTED, PATIENT ALERT TO VOICE. ASSESSMENT COMPLETE. FLUID PULLED FROM CHEST TUBE TUBING FOR LAB AND SENT. NO NEW CONCERNS, CHEST TUBE WNL, NO LEAKS OR CREPITUS ON ASSESSMENT.
--- NOTE | 2025-05-04 04:21 | NUR ---
PATIENT ALERT, REPOSITIONED, NOTED TO GRIMACE, PAIN ASSESSMENT-PATIENT REPORTS 7/10 PAIN AT BACK AND RIGHT LATERAL CHEST WALL. OXYCODONE 5MG PRN AND ROBITUSSIN AC ADMINISTERED PRN AT THIS TIME. PATIENT REPORTS NO OTHER NEEDS AT THIS TIME. CALL LIGHT IN REACH, BED ALARM ON FOR PATIENT SAFETY.
[2025-05-04 05:46] LABS: BASOPHILS 0.4 % (0.1-1.2); EOSINOPHILS 1.2 % (0.7-5.8); LYMPHOCYTES 14.4 % (19.3-51.7); MCH 29.3 PG (25.6-32.2); MCHC 31.7 g/dL (32.2-35.5); MCV 92.2 fL (79.4-94.8); MONOCYTES 12.0 % (4.7-12.5); NEUTROPHILS 71.1 % (34.0-71.1); RBC 3.35 M/uL (3.93-5.22)
[2025-05-04 06:13] LABS: ALT (SGPT) 10.0 U/L (14-59); AST (SGOT) 17.0 U/L (15-37); GLOMERULAR FILTRATION RATE,EST 98.0 mL/min (>60); PROTEIN, TOTAL 5.0 g/dL (6.4-8.2); UREA NITROGEN 7.0 mg/dL (7-18)
[2025-05-04] MEDS ORDERED: LEVOTHYROXINE SODIUM 125 MCG TAB PO SCH (07:00)
--- NOTE | 2025-05-04 07:02 | NUR ---
PATIENT RESTING IN BED, EYES CLOSED RESPIRATIONS REGULAR AT 17/MIN. PATIENT IS ALERT TO VOICE, FOR SCHEDULED MEDICATION, PATIENT REPORTS PAIN IS WELL TOLERATED AT THIS TIME, SHE VERBALIZED NOT WANTING ANY PAIN COVERAGE AT THIS TIME. SHE ALSO SAID SHE IS NOT FEELING THE URGE TO VOID.
--- NOTE | 2025-05-04 07:35 | NUR ---
CALLED TO REPORT LABS AND LOW URINE OUT OVER NIGHT. NEW ORDER FOR ONE BOLUS LR.
[2025-05-04] MEDS ORDERED: LACTATED RINGER'S 1,000 ML IV ONE (07:45)
--- NOTE | 2025-05-04 08:00 | NUR ---
pt up to bs commode spo2 decreases with activity and o2 at 3l's nc. spo2 decreased to 86%. Pt coughing with red in color sputum. From commod pt went to chair, am medications given LR bolus completed. Robitussin AC given for cough. Pt given BKF and she has been picking on it at this time. 09:20
[2025-05-04] MEDS ORDERED: LOSARTAN POTASSIUM 25 MG TAB PO SCH (09:00)
[2025-05-04] MEDS ORDERED: PANTOPRAZOLE SODIUM 40 MG TABEC PO SCH (09:00)
--- NOTE | 2025-05-04 10:25 | NUR ---
pt remains up in the chair at this time. At times she has eye closed . Less coughing noted at this time.
--- NOTE | 2025-05-04 11:15 | NUR ---
Pt resting with eyes closed. Pt no awakened.
--- NOTE | 2025-05-04 11:20 | CONS ---
[facility] [address], [place] [address] Signed DATE OF CONSULTATION: 05/01/2025 REQUESTING PHYSICIAN: Dr. Bangura. PROBLEM: Parapneumonic effusion right side related to right pneumonia and possible intraparenchymal abscess of lung. HISTORY OF PRESENT ILLNESS: This 80-year-old white woman presented to the emergency room was thoroughly evaluated by Dr. Keith Silva. She had an illness for the past 10 days, which included cough and congestion and feeling weak. She saw Kendall Rodriguez, her primary provider and was given a Z-Kolton and Tylenol with codeine pills. She has had worsening symptoms. She has never been a regular smoker. Has no underlying history of parenchymal lung disease, though she has had albuterol for reactive airways in the past. Her presentation included finding showing progressive cough, which was mildly productive. A chest x-ray showing right-sided effusion problem. A CT scan was performed which showed a sizable right-sided pleural effusion characterized as loculated though my examination does not confirm that necessarily. She is also described as having hepatic cirrhosis; I concede that the liver is quite large, but I am not certain that there are any nodular changes. Concurrently, her albumin is 1.9, this is low, but her platelet count is preserved at 513,000, thus not likely associated with portal hypertension. In any case, she is admitted by Dr. Bangura. Ceftriaxone antibiotic has been initiated and consultations then taken on the basis of the right pleural effusion. PAST MEDICAL HISTORY: Notable for reactive airways as previously described. Has rheumatoid arthritis, hence treatment hx for methotrexate. MEDICATIONS: Her active medications include 1. Albuterol nebulizer as needed for shortness of breath. 2. She has had cefdinir b.i.d. which has been discontinued. 3. Prednisone 40 mg daily in a very short course of therapy. 4. She previously was on methotrexate 7 tabs p.o. weekly. 5. Diltiazem XR 240 mg p.o. daily. 6. Folic acid. 7. Synthroid. 8. Bupropion. 9. Meloxicam. 10. Omeprazole. Electronically Signed By: BRENDA LEAL MD 05/04/25 1120 PATIENT NAME: KAYKAY CANDELARIA CONSULTATION DATE OF : 49 REPORT #: [id number] PHYSICIAN: BRENDA LEAL MD PCP: KENDALL RODRIGUEZ PAC REPORT IS CONFIDENTIAL AND NOT TO BE RELEASED WITHOUT AUTHORIZATION [facility] [address] [place] [address] Signed SOCIAL HISTORY: She is and is accompanied by her . They have been 7 years, but she has not changed her name. They live in [place]. REVIEW OF SYSTEMS: She denies any abdominal pain. She does have right-sided chest pain when coughing. She does have a cough which is difficult to control sometimes. PHYSICAL EXAMINATION: GENERAL: Pleasant white woman, who does not look systemically toxic at the moment. NECK: Trachea is midline. There is no jugular venous distention. CHEST: Posterior chest examination shows breath sounds bilaterally, but diminished on the right. I do not hear E to A changes on the right. ABDOMEN: I do not detect ascites of the abdomen clinically. Abdomen is nondistended at this time. EXTREMITIES: Show no clubbing, cyanosis, or edema. CT findings as noted above-- dominantly a large right pleural effusion and and a very large liver( but without nodularity to my initial exam ). No ascites. LABORATORY STUDIES: Show a white count of 22.6, hematocrit 35.4, platelets 513,000. Chem profile essentially normal. Creatinine is 0.69. Lactic acid 1.5 (normal). Alkaline phosphatase is 242, AST 29, ALT 25. BNP 205. Albumin 1.9, globulin 4.8. Serologic testing shows no evidence of coronavirus, influenza A, RSV or influenza B. I have reviewed her chest x-ray and CT scan in detail including the reports. ASSESSMENT: The patient has a significant right-sided pleural effusion associated with pneumonia and parenchymal compression and possible lucency in the lungs suggestive of a lung abscess. If the fluid is infected of course, this would be considered an empyema. I do not appreciate the loculations that have been described though I will review the x-ray more fully in a different window as that may be more revealing. The liver is enlarged, but I do not see nodularity to affirm cirrhosis. She does not have diminished platelet count as would be seen in advanced cirrhosis with portal hypertension. Drainage of the pleural space is quite important in management of her situation quite obviously. She may be better served by a chest tube placed in the operating room setting on the possibility that additional intervention including breakdown of loculations as necessary by thoracoscopic technique. I would not require at this time dual lumen intubation (selective lung ventilation) as the simple expansion of the lung may reasonably be expected with chest tube placement alone. I discussed with the patient and her the risk of bleeding, infection, lung injury, and other unforeseen complications. They understands and wished to proceed. Electronically Signed By: BRENDA LEAL MD 05/04/25 1120 PATIENT NAME: KAYKAY CANDELARIA CONSULTATION DATE OF : 49 REPORT #: [id number] PHYSICIAN: BRENDA LEAL MD PCP: KENDALL RODRIGUEZ PAC REPORT IS CONFIDENTIAL AND NOT TO BE RELEASED WITHOUT AUTHORIZATION [address] [place] [address] Signed I will obtain a prothrombin time at this point to better affirm her liver function, which in general terms appears to be preserved, though she does have a low albumin, which may be indicative of hepatic insufficiency as postulated by the radiologist's interpretation of her liver on CT scan. Discussed with Dr. Bangura. MD LASHONDA March/WANG /[id number] cc: Dr. Willem Rodriguez PA-C Copies: KENDALL RODRIGUEZ ~ Electronically Signed By: BRENDA LEAL MD 05/04/25 1120 PATIENT NAME: KAYKAY CANDELARIA CONSULTATION DATE OF : 49 REPORT #: [id number] PHYSICIAN: BRENDA LEAL MD PCP: KENDALL RODRIGUEZ PAC REPORT IS CONFIDENTIAL AND NOT TO BE RELEASED WITHOUT AUTHORIZATION
--- NOTE | 2025-05-04 11:21 | NUR ---
PT IS CURRENTLY WORKING WITH PHYSICAL THERAPY AT THIS TIME. AT TIMES HER SPO2 IS 88% WITH ACTIVITY. PT REMAINS UP IN THE CHAIR.
--- NOTE | 2025-05-04 12:17 | NUR ---
5MG OXY PO GIVEN AT THIS TIME. PT REMAINS UP IN CHAIR EATTING LUNCH
--- NOTE | 2025-05-04 15:03 | NUR ---
FRANCOISSIN AC GIVEN FOR COUGH. CT CALLED TO SEE WHEN ABOUT 25 MINUTE WAIT TIME. AT BEDSIDE. PT ATE SOME OF HER LUNCH, DOING FAIR AT THIS TIME.
--- NOTE | 2025-05-04 15:26 | NUR ---
PT IN BED TO CT AT THIS TIME, CLOTH CARRIER TRANSPORTING PT AT THIS TIME. IV SALINE LOCKED TO TRANSPORT TO CT.
--- NOTE | 2025-05-04 16:06 | NUR ---
pt returned from ct all items put back together, chest tube to suction, call light with in reach, bed in low position, warm pack given for over rt chest area,. o2, and iv.
--- NOTE | 2025-05-04 17:02 | NUR ---
PT UP TO THE BATHROOM VOIDED HETAL IN COLOR URINE. BACK TO BED AND ROBYN ACTIVITY WELL. MEDICATED WITH 2 TYL #3 AT THIS TIME FOR PAIN.
--- NOTE | 2025-05-04 17:15 | NUR ---
PT SITTING UP IN BED AND DINNER TRAY SET UP FOR HER AT THIS TIME.
--- NOTE | 2025-05-04 17:41 | NUR ---
PT DID NOT EAT DINNER, SHE JUST WAS NOT HUNGERY AT THIS TIME.
--- NOTE | 2025-05-04 18:04 | NUR ---
pt left for home at this time.
--- NOTE | 2025-05-04 18:38 | NUR ---
WHEN ASKED SHE IS DRY AT THIS TIME AND DOES NOT FEEL THE NEED TO VOID AT THIS TIME. WE TALKED ABOUT THE EXTURNAL CATH PURE WICK FOR HER TO USE. PT WILL IN TO TRY SO PLACED A PURE WICK WITH A ADULT PULL UP INPLACE. PT WANTED SOME YOURGET AND PUDDING. WAS ABLE TO PROVIDE BOTH AND PT IS SITTING UP IN BED FEEDING SELF.
--- NOTE | 2025-05-04 19:56 | NUR ---
CALLED TO REPORT CT FINDINGS. SAID THANK YOU.
--- NOTE | 2025-05-04 20:19 | NUR ---
PATIENT REPORTS HER PAIN IS WELL MANAGED AT THIS TIME AT REST. ASSESSMENT COMPLETE, CHEST TUBE ASSESSMENT WNL NO AIR LEAKS OR CREPITUS. PATIENT HAS CALL LIGHT IN REACH, NO REQUESTS AT THIS TIME.
--- NOTE | 2025-05-04 21:15 | NUR ---
CALL TO GIVE ORDER TO MAKE PATIENT NPO AT MIDNIGHT FOR ANTICIPATED PROCEDURE TOMORROW.
--- NOTE | 2025-05-05 00:24 | NUR ---
PATIENT NOTED OXYGEN SATURATION DOWN TO 88-89%, THIS RN INTO ROOM TO ASSESS, PATIENT HAD N.C. OUT OF NARES, REPLACED NOW 95% ON 3L N.C., PATIENT ALERT TO RN AT BEDSIDE, SHE REPORTS HAVING PAIN AT RIGHT LATERAL CHEST AND BACK, WARM PACK PROVIDED AND OXYCODONE PRN AT THIS TIME. SHE REPORTS NO OTHER NEEDS AT THIS TIME. CHEST TUBE ASSESSMENT WNL, NO AIR LEAKS OR CREPITUS NOTED. CALL LIGHT IN REACH.
--- NOTE | 2025-05-05 03:39 | NUR ---
PATIENT UP TO BEDSIDE COMMODE TO VOID, SHE IS NOTED TO BE SIGNIFICANTLY WEAKER GETTING OUT OF BED TONIGHT COMPARED TO LAST NIGHT, ONE PERSON ASSIST GETTING UP, TWO PERSON ASSIST BACK TO BED, PATIENT REPORTS PAIN 7/10 AND NOTED TO HAVE AUDIBLE WHEEZES, CALLED Laura PARTIDA TO ADMINISTER PRN NEB TX.
[2025-05-05 04:18] VITALS: BP 121/67
[2025-05-05 05:34] LABS: BASOPHILS 0.4 % (0.1-1.2); EOSINOPHILS 1.1 % (0.7-5.8); LYMPHOCYTES 10.1 % (19.3-51.7); MCH 28.9 PG (25.6-32.2); MCHC 31.2 g/dL (32.2-35.5); MCV 92.8 fL (79.4-94.8); MONOCYTES 10.4 % (4.7-12.5); NEUTROPHILS 77.1 % (34.0-71.1); RBC 3.32 M/uL (3.93-5.22)
[2025-05-05 05:49] LABS: AST (SGOT) 14.0 U/L (15-37); GLOMERULAR FILTRATION RATE,EST 98.0 mL/min (>60); PROTEIN, TOTAL 5.0 g/dL (6.4-8.2); UREA NITROGEN 4.0 mg/dL (7-18)
[2025-05-05 05:54] LABS: ALT (SGPT) 5.0 U/L (14-59)
[2025-05-05] MEDS ORDERED: SODIUM CHLORIDE 45 ML BTL NAS PRN (06:45)
--- NOTE | 2025-05-05 06:52 | NUR ---
ROUDNING ON PATIENT SHE IS ALERT TO NAME, SHE REPORTS SHE FEELS VERY TIRED, SHE HAS NO REQUESTS AT THIS TIME. V/S STABLE.
--- NOTE | 2025-05-05 07:15 | NUR ---
REPORT RECEIVED FROM HEEL GUMMER CANDACE TURNER.
--- NOTE | 2025-05-05 07:50 | NUR ---
PATIENT IS LYING IN BED WITH HOB ELEVATED. PATIENT WITH EYES CLOSED AND RESPIRATIONS ARE EVEN AND UNLABORED. CALL LIGHT AND PERSONAL BELONGINGS ARE WITHIN REACH.
[2025-05-05 08:31] VITALS: BP 134/77
--- NOTE | 2025-05-05 08:45 | NUR ---
PATIENT ASSESSMENT COMPLETE AND DOCUMENTED IN THE CHART. PATIENT RATED PAIN 2/10 IN THE RIGHT SIDE AND BACK. PATIENT IS NOT REQUESTING ANYTHING FOR PAIN. PRN ROBUTUSSIN ADMINISTERED PER THE EMAR. LIDOCAINE PATCHES PLACED PER THE EMAR. PATIENT IS ALERT AND ORIENTED TIMES FOUR. PATIENT REMAINS NPO. PATIENT IS ON THE HEART MONITOR IN SINUS RHYTHM. PATIENT IS ON 4 L NC. LUNG SOUNDS ARE CLEAR IN THE FENG, CLEAR/DIMINISHED IN THE RUL AND LLL, AND DIMINISHED IN THE RLL. PATIENT WITH NO COMPLAINTS OF SOB. PATIENT WITH CHEST TUBE IN PLACE ON THE RIGHT SIDE. SEROUS DRAINAGE NOTED IN THE CHEST TUBE TUBING. PATIENT ASSISTED TO THE BEDSIDE COMMODE AND VOIDED 800 ML URINE. PATIENT ASSISTED BACK TO BED WITH 1PA. PATIENT TOLERATED WELL. PATIENT STATED NO FURTHER NEEDS AT THIS TIME. CALL LIGHT AND PERSONAL BELONGINGS ARE WITHIN REACH.
--- NOTE | 2025-05-05 09:05 | NUR ---
PATIENT IS LYING IN BED WITH HOB ELEVATED. PATIENT WITH EYES CLOSED AND RESPIRATIONS ARE EVEN AND UNLABORED. CALL LIGHT AND PERSONAL BELONGINGS ARE WITHIN REACH.
--- NOTE | 2025-05-05 09:28 | NUR ---
PATIENT GIVEN UPDATE REGARDING TRANSFER STATUS. PATIENT EXPRESSED UNDERSTANDING. PATIENT IS REQUESTING THIS RN TO UPDATE HER . PATIENT STATED NO FURTHER NEEDS AT THIS TIME. CALL LIGHT AND PERSONAL BELONGINGS ARE WITHIN REACH.
[2025-05-05 09:29] VITALS: BP 134/78
--- NOTE | 2025-05-05 09:34 | NUR ---
NOTIFIED OF PATIENT POTASSIUM OF 3.4. MD GAVE VERBAL ORDER FOR 20 MEQ PO KCL- ONCE. WITH NO FURTHER ORDERS AT THIS TIME.
[2025-05-05] MEDS ORDERED: POTASSIUM CHLORIDE 10 MEQ TABCR PO ONE (09:45)
--- NOTE | 2025-05-05 10:03 | NUR ---
IV PUMP CLEARED OF INTAKE FLUIDS AND DOCUMENTED IN THE CHART. PATIENT IS LYING IN BED WITH HOB ELEVATED. PATIENT WITH EYES CLOSED AND RESPIRATIONS ARE EVEN AND UNLABORED. PATIENT REMAINS ON 4 L NC. CALL LIGHT AND PERSONAL BELONGINGS ARE WITHIN REACH.
[2025-05-05 10:11] VITALS: BP 113/69
--- NOTE | 2025-05-05 10:29 | NUR ---
THIS RN TRIED TO PLACE CALL TO PATIENT (PETRA) AT THIS TIME. PATIENT DID NOT ANSWER.
--- NOTE | 2025-05-05 10:50 | NUR ---
THIS RN TRIED TO CALL PATIENT AT THIS TIME. PATIENT DID NOT ANSWER.
[2025-05-05 11:12] VITALS: BP 136/82
--- NOTE | 2025-05-05 11:13 | NUR ---
BED BATH AND SHOWER CAP COMPLETE AT THIS TIME. PATIENT GOT TO THE COMMODE AND VOIDED 200 ML. 1+ PITTING EDEMA NOTED TO THE BLE. RN ASKED PATIENT REGARDING EDEMA IN THE LEFT ARM. PATIENT REPORTS THIS IS NORMAL. SCD'S REMOVED. IV IN THE RAC LEAKING. CANDACE BRODY DISCONTINUED THE IV. PATIENT STATED NO FURTHER NEEDS AT THIS TIME. CALL LIGHT AND PERSONAL BELONGINGS ARE WITHIN REACH.
--- NOTE | 2025-05-05 11:20 | NUR ---
Transport team her to take pt to . [facility]. Pt denies needs, staff and pt have not been able to reach the pts spouse. I let her know I will cont. to call.
--- NOTE | 2025-05-05 11:45 | NUR ---
REPORT GIVEN TO CANDACE MCCLAIN AT [facility]. ALL QUESTIONS AND CONCERNS ADRESSED. CALL ENDED.
--- NOTE | 2025-05-05 11:50 | NUR ---
I was able to reach pts spouse, Thomas. Updated, pt has been transferred to [facility] in [place].He was somewhat upset, but I let him know we have been clarissa- ling since last night.He has multiple questions and I let him know I will have the hospitalist call him. Took Thomas's phone number to Dr. Cunningham and he was calling spouse to update.
[2025-05-06 08:55] LABS: TOTAL PROTEIN FLUID SOURCE Pleural fluid (())
[2025-05-06 13:57] LABS: AMYLASE FLUID SOURCE Pleural fluid (()); AMYLASE, BODY FLUID 22 U/L (()); LACTATE DEHYDROGENASE TOTAL,BF 905 U/L (()); LDH FLUID SOURCE Pleural fluid (())
== END 2025-05-05 11:40 | disposition short-term general hospital (02) | DRG 177 ==
LOC: ED 10:48 → CCU 14:58
PROVIDERS: Emergency Medicine; Surgery; ADMIT Student in an Organized Health Care Education/Training Program; ATTEND Student in an Organized Health Care Education/Training Program
PROC: 3E03329 Introduction of Other Anti-infective into Peripheral Vein, Percutaneous Approach (ICD-10-PCS; 2025-05-01)
PROC: 0W9930Z Drainage of Right Pleural Cavity with Drainage Device, Percutaneous Approach (ICD-10-PCS; principal; 2025-05-01 18:40)
DX: J86.9 Pyothorax without fistula (principal); J18.9 Pneumonia, unspecified organism; J90 Pleural effusion, not elsewhere classified; I10 Essential (primary) hypertension; E03.9 Hypothyroidism, unspecified; M06.9 Rheumatoid arthritis, unspecified; Z66 Do not resuscitate; Z96.653 Presence of artificial knee joint, bilateral; G40.909 Epilepsy, unspecified, not intractable, without status epilepticus; E78.5 Hyperlipidemia, unspecified; Z99.81 Dependence on supplemental oxygen; F17.210 Nicotine dependence, cigarettes, uncomplicated; K74.60 Unspecified cirrhosis of liver; Z96.649 Presence of unspecified artificial hip joint; Z79.51 Long term (current) use of inhaled steroids; Z79.899 Other long term (current) drug therapy; Z79.52 Long term (current) use of systemic steroids; Z79.890 Hormone replacement therapy
CPT/HCPCS: 00520; 36415; 51798; 71045; 71260; 71270; 80053; 82150; 83605; 83735; 83880; 83986; 84157; 85025; 85060; 85610; 87070; 87075; 87205; 87502; 89051; 94640; 94799; 97162; 97166; 97530; 97535; A9270; J0696; J2003; J2250; J2405; J2704; J3010; J7121; Q9967; U0002